=== PATIENT | female | born 1990 | race Caucasian/White ===

== ENCOUNTER 2024-05-27 00:37 | Inpatient (IN) | payer BC ==
[2024-05-27] MEDS ORDERED: KETOROLAC 30 MG/ML INJ ONE (01:53)
[2024-05-27] MEDS ORDERED: ONDANSETRON 4 MG/2 ML VIAL ONE (01:53)
[2024-05-27] MEDS ORDERED: NA CHLORIDE 0.9% 1,000 ML ONE ×2 (01:53→06:27)
[2024-05-27] MEDS ORDERED: MORPHINE 4 MG/ML SYR ONE (01:53)
[2024-05-27 01:58] LABS: Specific Gravity 1.015 (1.005-1.030); Sqamous Epithelial <5 /HPF (None Seen); Urine Bacteria <20 /HPF (<20); Urine Bilirubin NEGATIVE (Negative); Urine Blood 3+ (OVER) (Negative); Urine Clarity Extremely Turbid (Clear); Urine Color Yellow (Yellow); Urine Culture Reflex Order REFLEXED; Urine Glucose NEGATIVE (Negative); Urine Ketones 2+ (Negative); Urine Microscopic Reflex YN ORDER UMIC; Urine Mucus 4+ /HPF (None Seen); Urine Nitrite NEGATIVE (Negative); Urine Protein 2+ (Negative); Urine RBC >50 /HPF (None Seen); Urine Urobilinogen Normal (Normal); Urine WBC >50 /HPF (<5); Urine WBC Clump Occasional /HPF (None Seen); Urine pH 6.5 (5.0-7.0)
[2024-05-27 01:59] LABS: Specific Gravity 1.015 (1.005-1.030)
[2024-05-27 02:16] LABS: Absolute Eosinophils 0.1 K/uL (0-0.5); Absolute Lymphocytes (CBC) 1.5 K/uL (0.7-4.9); Absolute Monocytes 0.8 K/uL (0.1-1.3); Absolute Neutrophil 14.3 K/uL (1.8-8.0); Basophils % 0.2 % (0-1.3); Eosinophils % 0.3 % (0-4.4); Hematocrit 38.3 % (36.0-45.0); Hemoglobin 12.5 g/dL (12.0-15.0); Lymphocytes % 9.2 % (15.3-44.8); MCH 29.3 pg (27.0-35.0); MCHC 32.7 g/dL (32.0-36.0); MCV 89.6 fL (80-100); Monocytes % 4.9 % (3.3-12.3); Neutrophils % 85.4 % (41.7-73.7); Platelets 289 thou/uL (152-406); RBC Red Blood Cell Count 4.27 M/uL (3.86-4.86); Red Cell Distribution Width 13.8 % (12.1-15.2)
[2024-05-27 02:26] LABS: ALT/SGPT 17 U/L (13-56); Albumin/Globulin Ratio 1.2 (1.1-1.8); Alkaline Phosphatase 63 U/L (45-117); Anion Gap 7.8 mEq/L (5.0-15.0); BUN Blood Urea Nitrogen 12 mg/dL (7-18); Bicarbonate 25 mEq/L (21-32); Bilirubin Total 0.5 mg/dL (0.2-1.0); Globulin 3.4 g/dL (2.3-3.5); Glomerular Filtration Rate 94 ml/min (=/>90); Glucose Level 108 mg/dL (74-106); Lipase 46 U/L (13-75); Potassium 3.8 mEq/L (3.5-5.1); Protein, Total 7.4 g/dL (6.4-8.2); Sodium Level 137 mEq/L (136-145)
[2024-05-27 02:34] LABS: AST/SGOT < 10 U/L (15-37)
[2024-05-27 03:21] LABS: Band Neutrophils 5 % (0-1); Differential Total Cells Count 100; Lymphocytes 10 % (15-42); Monocytes 2 % (0-10); Segmented Neutrophils 83 % (40-80)
[2024-05-27 03:22] LABS: Blood Morphology Comment NOT SEEN (NOT SEEN); Platelet Estimate ADEQ
--- NOTE | 2024-05-27 04:12 | ER ---
Nurse's Notes [facility] Name: Gavi Olivas Age: 34 yrs Sex: Female : 1990 Arrival Date: 05/27/2024 Time: 00:37 Bed 19 Private MD: Diagnosis: Pyelonephritis acute;Sepsis, unspecified organism Presentation: 05/27 01:31 Chief complaint: Patient states: left lower back pain that radiates to left lower vc1 abdomin, fever, chills, N/V. Cramping with urination. Coronavirus screen: Vaccine status: Patient reports receiving the 2nd dose of the covid vaccine. Client denies travel out of the [place] in the last 14 days. At this time, the client does not indicate any symptoms associated with coronavirus-19. Ebola Screen: Patient negative for fever greater than or equal to 101.5 degrees Fahrenheit, and additional compatible Ebola Virus Disease symptoms Patient denies exposure to infectious person. Patient denies travel to an Ebola-affected area in the 21 days before illness onset. No symptoms or risks identified at this time. Initial Sepsis Screen: Does the patient meet any 2 criteria? No. Patient's initial sepsis screen is negative. Does the patient have a suspected source of infection? No. Patient's initial sepsis screen is negative. Risk Assessment: Do you want to hurt yourself or someone else? Patient reports no desire to harm self or others. Onset of symptoms was May 25, 2024. 01:31 Method Of Arrival: Ambulatory vc1 01:31 Acuity: PERCY 3 vc1 Triage Assessment: 01:35 General: Appears in no apparent distress. uncomfortable, Behavior is calm, cooperative, vc1 appropriate for age. Pain: Complains of pain in left low back Pain radiates to left lower quadrant Pain currently is 10 out of 10 on a pain scale. GI: Abdomen is flat, non-distended, Reports lower abdominal pain, nausea, vomiting. : Urine is cloudy, Reports cramping, in supra pubic. 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 - Infectious Disease History:: Denies. - Social history:: Smoking status: Patient denies any tobacco usage or history of. - Family history:: not pertinent. Screenin:[facility] ED Fall Risk Assessment (Adult) History of falling in the last 3 months, vc1 including since admission No falls in past 3 months (0 pts) Confusion or Disorientation No (0 pts) Intoxicated or Sedated No (0 pts) Impaired Gait No (0 pts) Mobility Assist Device Used No (0 pt) Altered Elimination No (0 pt) Score/Fall Risk Level 0 - 2 = Low Risk Oriented to surroundings, Maintained a safe environment, Educated pt \T\ family on fall prevention, incl call for assistance when getting out of bed. Abuse screen: Denies threats or abuse. Nutritional screening: No deficits noted. Tuberculosis screening: No symptoms or risk factors identified. Assessment: 02:05 Reassessment: Patient appears in no apparent distress at this time. Patient and/or bm8 family updated on plan of care and expected duration. Pain level reassessed. Patient is alert, oriented x 3, equal unlabored respirations, skin warm/dry/pink. General: Appears in no apparent distress. uncomfortable, Behavior is calm, cooperative, appropriate for age. Pain: Complains of pain in abdomen and left lower quadrant and back and left low back Pain currently is 6 out of 10 on a pain scale. Neuro: No deficits noted. Level of Consciousness is awake, alert, obeys commands, Oriented to person, place, time, situation, Appropriate for age. Cardiovascular: Denies chest pain, Heart tones S1 S2 present Capillary refill < 3 seconds Patient's skin is warm and dry. Respiratory: Airway is patent Trachea midline Respiratory effort is even, unlabored, Respiratory pattern is regular, symmetrical, Breath sounds are clear bilaterally. GI: Bowel sounds present X 4 quads. Abdomen is tender to palpation in left lower quadrant. : Reports pain in left flank(s), lower quadrant(s). EENT: No signs and/or symptoms were reported regarding the EENT system. Derm: No signs and/or symptoms reported regarding the dermatologic system. 05:45 Reassessment: Patient appears in no apparent distress at this time. Patient and/or bm8 family updated on plan of care and expected duration. Pain level reassessed. Patient is alert, oriented x 3, equal unlabored respirations, skin warm/dry/pink. Patient states feeling better. Patient states symptoms have improved. Vital Signs: 01:31 BP 111 / 64; Pulse 92; Resp 18; Temp 98.6; Pulse Ox 99% ; Pain 10/10; vc1 01:40 Weight 75.3 kg; Height 5 ft. 3 in. ; vc1 02:07 BP 96 / 59; Pulse 96; Resp 18; Temp 98.6; Pulse Ox 96% ; Pain 6/10; bm8 03:30 BP 87 / 57; Pulse 73; Resp 18; Temp 98.6; Pulse Ox 100% ; Pain 0/10; bm8 05:45 BP 103 / 62; Pulse 79; Resp 17; Temp 98.5; Pulse Ox 100% ; Pain 4/10; bm8 01:40 Body Mass Index 29.41 (75.30 kg, 160.02 cm) vc1 01:31 Pain Scale: Adult vc1 02:07 Pain Scale: Adult bm8 03:30 Pain Scale: Adult bm8 05:45 Pain Scale: Adult bm8 Bob Coma Score: 02:05 Eye Response: spontaneous(4). Motor Response: obeys commands(6). Verbal Response: bm8 oriented(5). Total: 15. 03:30 Eye Response: spontaneous(4). Motor Response: obeys commands(6). Verbal Response: bm8 oriented(5). Total: 15. 05:45 Eye Response: spontaneous(4). Motor Response: obeys commands(6). Verbal Response: bm8 oriented(5). Total: 15. ED Course: 00:46 Patient arrived in ED. gm2 00:52 Joselito Ohara MD is Attending Physician. rt 01:33 Triage completed. vc1 01:35 Arm band placed on right wrist. vc1 01:51 Jeff Forrest, DOMENICA is Primary Nurse. bm8 02:04 Inserted saline lock: 20 gauge in right antecubital area, using aseptic technique. al5 02:05 Patient has correct armband on for positive identification. Bed in low position. Call bm8 light in reach. Side rails up X 1. Adult w/ patient. Client placed on continuous cardiac and pulse oximetry monitoring. NIBP monitoring applied. Pulse ox on. NIBP on. Door closed. Noise minimized. Warm blanket given. Pillow given. Verbal reassurance given. Head of bed elevated. 02:05 No provider procedures requiring assistance completed. Initial lab(s) drawn, by ED bm8 staff, sent to lab. Urine collected: clean catch specimen, clear. 02:50 CT Abd/Pelvis - IV Contrast Only In Process Unspecified. EDMS 04:11 Jono Schneider MD is Hospitalizing Provider. rt 04:45 Inserted saline lock: 22 gauge in left antecubital area, using aseptic technique. Blood bm8 collected. Flushed with 10 mL NS. 04:45 First set of blood cultures drawn by me. bm8 05:00 Second set of blood cultures drawn by me, EKG done, by ED staff, reviewed by Joselito Ohara MD. 05:21 Provided Education on: need for admit. bm8 05:45 Patient admitted, IV remains in place. bm8 11:40 CM met with at the bedside in the ED exam room. Patient identified by name ane and . Demographic confirmed. Patient states she lives with her in a single story home. Patient states prior to admission, she performs ADLs independently and without physical limitations. No DME, HH, home oxygen or other medical services at this time. No MPOA in place at this time, patient wishes to discuss this with her before putting one in place. Mrs. Olivas's preferred discharge plan is to return home. Patient states her Evaristo or a friend can transport her home upon discharge. CM team will continue to follow and coordinate care. Administered Medications: 02:04 Drug: NS 0.9% IV 1000 ml IV at 1 bolus Per protocol; 1000 mL bolus Route: IV; Rate: 1 bm8 bolus; Site: right antecubital; 05:20 Follow up: Response: No adverse reaction; IV Status: Completed infusion; IV Intake: bm8 1000ml 02:04 Drug: TORadol - Ketorolac IVP 15 mg IVP once Route: IVP; Site: right antecubital; bm8 05:21 Follow up: Response: No adverse reaction bm8 02:04 Drug: Ondansetron IVP 4 mg IVP once; over 2 minutes Route: IVP; Site: right antecubital;bm8 05:21 Follow up: Response: No adverse reaction bm8 02:04 Drug: morphine IVP or IV 4 mg IVP once over 4 mins Route: IVP; Infused Over: 4 mins; bm8 Site: right antecubital; 05:21 Follow up: Response: No adverse reaction bm8 04:38 Drug: fentaNYL (PF) IVP 50 mcg IVP once Route: IVP; Site: right antecubital; bm8 05:20 Follow up: Response: No adverse reaction bm8 04:39 Drug: NS 0.9% IV 1000 ml IV at 1 bolus Per protocol; 1000 mL bolus Route: IV; Rate: 1 bm8 bolus; Site: right antecubital; 05:20 Follow up: Response: No adverse reaction; IV Status: Completed infusion; IV Intake: bm8 1000ml 05:06 Drug: Rocephin IV 2 grams IV at calculated rate once; Given slow IV push per pharmarcy bm8 instructions Route: IV; Rate: calculated rate; Site: left antecubital; 05:20 Follow up: Response: No adverse reaction; IV Status: Completed infusion; IV Intake: bm8 100ml Medication: 02:05 VIS not applicable for this client. bm8 Intake: 05:20 IV: 100ml; Total: 100ml. bm8 05:20 IV: 1000ml; Total: 1100ml. bm8 05:20 IV: 1000ml; Total: 2100ml. bm8 Outcome: 04:12 Decision to Hospitalize by Provider. rt 05:45 Admitted to ER Hold. Please see [facility] for further documentation. bm8 05:45 Condition: stable 05:45 Instructed on the need for admit, Demonstrated understanding of instructions, follow-up care, 14:42 Patient left the ED. bp Signatures: Dispatcher [employer] EDMS John Vicente RN RN bp Jeannette Chung RN RN vc1 Joselito Ohara MD MD rt Cherelle Salcido gm2 Jeff Forrest RN RN bm8 Chanda Garcia RN RN al5 Mallory Tracy RN RN ane Corrections: (The following items were deleted from the chart) 01:35 01:33 PMHx: None; vc1 vc1 04:38 04:38 fentaNYL (PF) IVP 50 mcg IVP in left antecubital bm8 bm8
--- NOTE | 2024-05-27 04:13 | EDPHYS ---
Physician Documentation [facility] Name: Gavi Olivas Age: 34 yrs Sex: Female : 1990 Arrival Date: 05/27/2024 Time: 00:37 Bed 19 Private MD: ED Physician Joselito Ohara HPI: 05/27 04:22 This 34 yrs old Female presents to ER via Ambulatory with complaints of Abdominal Pain, rt Back Pain, Fever, Vomiting. 04:22 Patient presents to the ED with about 1 week of progressively worsening dysuria, rt nausea, vomiting, reported fevers, right flank pain. Denies other acute complaints at this time, symptoms are moderate in severity, no other aggravating alleviating factors.. 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 - Infectious Disease History:: Denies. - Social history:: Smoking status: Patient denies any tobacco usage or history of. - Family history:: not pertinent. ROS: 04:22 Cardiovascular: Negative for chest pain, palpitations, and edema, Respiratory: Negative rt for shortness of breath, cough, wheezing, and pleuritic chest pain, MS/Extremity: Negative for injury and deformity, Skin: Negative for injury, rash, and discoloration, Neuro: Negative for headache, weakness, numbness, tingling, and seizure, 04:22 Constitutional: Positive for fever, 04:22 Abdomen/GI: Positive for abdominal pain, nausea and vomiting, 04:22 : Positive for flank pain, burning with urination, Exam: 04:24 Constitutional: This is a well developed, well nourished patient who is awake, alert, rt and in no acute distress. Head/Face: Normocephalic, atraumatic. Chest/axilla: Normal chest wall appearance and motion. Nontender with no deformity. No lesions are appreciated. Cardiovascular: Regular rate and rhythm with a normal S1 and S2. No gallops, murmurs, or rubs. Normal PMI, no JVD. No pulse deficits. Respiratory: Lungs have equal breath sounds bilaterally, clear to auscultation and percussion. No rales, rhonchi or wheezes noted. No increased work of breathing, no retractions or nasal flaring. Abdomen/GI: Soft, non-tender, with normal bowel sounds. No distension or tympany. No guarding or rebound. No evidence of tenderness throughout. Skin: Warm, dry with normal turgor. Normal color with no rashes, no lesions, and no evidence of cellulitis. MS/ Extremity: Pulses equal, no cyanosis. Neurovascular intact. Full, normal range of motion. Neuro: Awake and alert, GCS 15, oriented to person, place, time, and situation. Cranial nerves II-XII grossly intact. Motor strength 5/5 in all extremities. Sensory grossly intact. Cerebellar exam normal. Normal gait. 04:24 ECG was reviewed by the Attending Physician. 04:24 Back: Right CVAT, Vital Signs: 01:31 BP 111 / 64; Pulse 92; Resp 18; Temp 98.6; Pulse Ox 99% ; Pain 10/10; vc1 01:40 Weight 75.3 kg; Height 5 ft. 3 in. ; vc1 02:07 BP 96 / 59; Pulse 96; Resp 18; Temp 98.6; Pulse Ox 96% ; Pain 6/10; bm8 03:30 BP 87 / 57; Pulse 73; Resp 18; Temp 98.6; Pulse Ox 100% ; Pain 0/10; bm8 05:45 BP 103 / 62; Pulse 79; Resp 17; Temp 98.5; Pulse Ox 100% ; Pain 4/10; bm8 01:40 Body Mass Index 29.41 (75.30 kg, 160.02 cm) vc1 01:31 Pain Scale: Adult vc1 02:07 Pain Scale: Adult bm8 03:30 Pain Scale: Adult bm8 05:45 Pain Scale: Adult bm8 Bob Coma Score: 02:05 Eye Response: spontaneous(4). Motor Response: obeys commands(6). Verbal Response: bm8 oriented(5). Total: 15. 03:30 Eye Response: spontaneous(4). Motor Response: obeys commands(6). Verbal Response: bm8 oriented(5). Total: 15. 05:45 Eye Response: spontaneous(4). Motor Response: obeys commands(6). Verbal Response: bm8 oriented(5). Total: 15. MDM: 01:37 Patient medically screened. rt 04:24 Differential diagnosis: UTI, kidney stone, bilateral. Data reviewed: vital signs, rt nurses notes, lab test result(s), EKG, radiologic studies. Consideration of Admission/Observation Patient was admitted/placed on observation. Management of patient was discussed with the following: Hospitalist: Agrees to admit. I considered the following discharge prescriptions or medication management in the emergency department Medications were administered in the Emergency Department. See MAR. Independent interpretation of the following test(s) in the Emergency Department CT Scan: My interpretation is No ureteral stone seen on interpretation of CT scan images. Counseling: I had a detailed discussion with the patient and/or guardian regarding the historical points, exam findings, and any diagnostic results supporting the discharge/admit diagnosis, lab results, radiology results, the need for further work-up and treatment in the hospital. Response to treatment: the patient's symptoms have markedly improved after treatment. ED course: Infectious source not identified until patient's urinalysis resulted. Second SIRS criteria with leukocytosis, that time, IV fluids, antibiotics were given. Patient to be admitted for further care.. 05/27 01:40 Order name: Urinalysis w/ reflexes; Complete Time: 03:47 vc1 05/27 01:42 Order name: CBC with Diff; Complete Time: 03:47 rt 05/27 01:42 Order name: CMP; Complete Time: 03:47 rt 05/27 01:42 Order name: Lipase; Complete Time: 03:47 rt 05/27 01:42 Order name: Test, Urine; Complete Time: 03:47 rt 05/27 02:02 Order name: Urine Culture EDMS 05/27 02:38 Order name: Manual Differential; Complete Time: 03:47 EDMS 05/27 03:56 Order name: Blood Culture Adult (2) rt 05/27 03:56 Order name: Lactate w/ 2H reflex if indic. rt 05/27 03:56 Order name: Protime (+inr) rt 05/27 03:56 Order name: Ptt, Activated rt 05/27 04:21 Order name: Urinalysis w/ reflexes EDMS 05/27 01:42 Order name: CT Abd/Pelvis - IV Contrast Only rt 05/27 01:42 Order name: IV Saline Lock; Complete Time: 02:05 rt 05/27 01:42 Order name: Labs collected and sent; Complete Time: 02:05 rt 05/27 03:56 Order name: Cardiac monitoring; Complete Time: 04:10 rt 05/27 03:56 Order name: EKG - Nurse/Tech; Complete Time: 04:10 rt 05/27 03:56 Order name: IV Saline Lock - Large Bore; Complete Time: 04:10 rt 05/27 03:56 Order name: O2 Per Protocol; Complete Time: 04:10 rt 05/27 03:56 Order name: O2 Sat Monitoring; Complete Time: 04:10 rt 05/27 03:56 Order name: Vital Signs; Complete Time: 04:10 rt EC:24 Rate is 76 beats/min. Rhythm is regular, Normal Sinus Rhythm with No ectopy. QRS [place] rt is Normal. VT interval is normal. QRS interval is normal. QT interval is normal. No Q waves. T waves are Normal. No ST changes noted. Interpreted by me. Administered Medications: 02:04 Drug: NS 0.9% IV 1000 ml IV at 1 bolus Per protocol; 1000 mL bolus Route: IV; Rate: 1 bm8 bolus; Site: right antecubital; 05:20 Follow up: Response: No adverse reaction; IV Status: Completed infusion; IV Intake: bm8 1000ml 02:04 Drug: TORadol - Ketorolac IVP 15 mg IVP once Route: IVP; Site: right antecubital; bm8 05:21 Follow up: Response: No adverse reaction bm8 02:04 Drug: Ondansetron IVP 4 mg IVP once; over 2 minutes Route: IVP; Site: right antecubital;bm8 05:21 Follow up: Response: No adverse reaction bm8 02:04 Drug: morphine IVP or IV 4 mg IVP once over 4 mins Route: IVP; Infused Over: 4 mins; bm8 Site: right antecubital; 05:21 Follow up: Response: No adverse reaction bm8 04:38 Drug: fentaNYL (PF) IVP 50 mcg IVP once Route: IVP; Site: right antecubital; bm8 05:20 Follow up: Response: No adverse reaction bm8 04:39 Drug: NS 0.9% IV 1000 ml IV at 1 bolus Per protocol; 1000 mL bolus Route: IV; Rate: 1 bm8 bolus; Site: right antecubital; 05:20 Follow up: Response: No adverse reaction; IV Status: Completed infusion; IV Intake: bm8 1000ml 05:06 Drug: Rocephin IV 2 grams IV at calculated rate once; Given slow IV push per pharmarcy bm8 instructions Route: IV; Rate: calculated rate; Site: left antecubital; 05:20 Follow up: Response: No adverse reaction; IV Status: Completed infusion; IV Intake: bm8 100ml Disposition Summary: 05/27/24 04:12 Hospitalization Ordered Notes: Hospitalization Status: Inpatient Admission rt Provider: Jono Schneider rt Condition: Stable rt Problem: new rt Symptoms: have improved rt Bed/Room Type: Standard rt Location: Telemetry/MedSurg (Inpatient)(05/27/24 13:58) ap3 Room Assignment: 212(05/27/24 13:58) ap3 Diagnosis - Pyelonephritis acute rt - Sepsis, unspecified organism rt Discharge Instructions: - Discharge Summary Sheet ty Forms: - Medication Reconciliation Form rt - SBAR form rt - Leadership Thank You Letter rt - Work release form ty Signatures: Dispatcher [employer] Francheska Zaldivar, RN Chanda Wadsworth RN RN ap3 Jeannette Chung RN RN vc1 Joselito Ohara MD MD rt Jeff Frorest RN RN bm8 Corrections: (The following items were deleted from the chart) 01:35 01:33 PMHx: None; vc1 vc1 01:43 01:43 Abdomen Pelvis W Con+CT.RAD.BRZ ordered. EDMS EDMS 03:57 03:57 BLOOD CULTURE*+BA.LAB.BRZ ordered. EDMS EDMS 03:57 03:57 LACTATE+C.LAB.BRZ ordered. EDMS EDMS 03:57 03:57 PROTIME (+INR)+COAG.LAB.BRZ ordered. EDMS EDMS 03:57 03:57 PTT, ACTIVATED+COAG.LAB.BRZ ordered. EDMS EDMS 04:10 03:56 Accucheck ordered. rt bm8 04:50 04:12 Telemetry/MedSurg (Inpatient) rt cg 04:50 04:12 rt cg 13:58 04:50 [facility] ER HOLD cg ap3 13:58 04:50 ERHOLD- cg ap3
[2024-05-27] MEDS ORDERED: FENTANYL CITR 100 MCG/2 ML ONE (04:22)
--- NOTE | 2024-05-27 04:22 | P.HP ---
Certification for Inpatient Patient admitted to: Inpatient With expected LOS: >2 Midnights Practitioner: I am a practitioner with admitting privileges, knowledge of patient current condition, hospital course, and medical plan of care. Services: Services provided to patient in accordance with Admission requirements found in Title 42 Section 412.3 of the Code of Federal Regulations Patient History Date of Service: 05/27/24 Reason for admission: Fevers or chills History of Present Illness: 34-year-old female with no significant past medical history came to ER with abdominal pain and fever and chills associated with dysuria for the last 2 days. Patient states that the pain initially started as lower abdominal pain and back pain which has been going on since Monday. Yesterday patient started having fever and chills and flank pain and was brought to ER Patient was assessed in the ER and was found to have pyelonephritis and was admitted for further management Allergies No Known Allergies Allergy (Unverified 05/27/24 05:14) Home medications list reviewed: Yes - Past Medical/Surgical History Past Medical History: Reviewed- Non-Contributory Past Surgical History: Reviewed- Non-Contributory - Family History Family History: Reviewed- Non-Contributory - Social History Smoking Status: Never smoker Review of Systems 10-point ROS is otherwise unremarkable Physical Examination - Vital Signs Temperature: 99.2 F Blood Pressure: 108/62 Pulse: 84 Respirations: 18 Pulse Ox (%): 96 - Physical Exam General: Alert, Oriented x3, Cooperative, Mild distress HEENT: Atraumatic, Normocephalic Neck: Supple, JVD not distended Respiratory: Clear to auscultation bilaterally, Normal air movement Cardiovascular: Normal pulses, Regular rate/rhythm Capillary refill: <2 Seconds Gastrointestinal: Non-distended, W/out hepatosplenomegaly, Tenderness Musculoskeletal: No clubbing, No swelling Integumentary: No rashes, No breakdown Neurological: Normal gait, Normal speech, Normal strength at 5/5 x4 extr, Cranial nerves 3-12 intact, Normal reflexes 2+ Lymphatics: No axilla or inguinal lymphadenopathy - Studies Laboratory Data (last 24 hrs) 05/27/24 05/27/24 01:56 01:56 WBC 16.80 H Hgb 12.5 Hct 38.3 Plt Count 289 Sodium 137 Potassium 3.8 BUN 12 Creatinine 0.83 Glucose 108 H Total Bilirubin 0.5 AST < 10 L ALT 17 Alkaline Phosphatase 63 Lipase 46 Assessment and Plan - Plan Pyelonephritis Pain control IV hydration IV antibiotic Will obtain cultures Change antibiotic as per sensitivity Monitor closely with telemetry Leukocytosis CBC monitored Continue antibiotics GI/DVT prophylaxis Advanced directive full code Discharge Plan: Home Plan to discharge in: 48 Hours - Advance Directives Does patient have a Living Will: No Does patient have a Durable POA for Healthcare: No - Code Status/Comfort Care Code Status: Full Code Time Spent Managing Pts Care (In Minutes): 48
[2024-05-27] MEDS: NA CHLORIDE 0.9% 1,000 ML IV SCH (05:00)
[2024-05-27] MEDS ORDERED: CEFTRIAXONE 2000 MG/VIAL ONE (05:05)
[2024-05-27 05:30] LABS: PTT, Activated Partial Thromb 31.6 SECONDS (24.3-36.9); Protime INR 1.07
[2024-05-27 06:20] VITALS: BMI 29.4
[2024-05-27] MEDS: HYDROCODONE/APAP 5/325 MG TAB PO PRN (07:45)
[2024-05-27] MEDS ORDERED: HYDROCODONE/APAP 5/325 MG TAB ONE (07:48)
[2024-05-27 08:29] LABS: Sqamous Epithelial <5 /HPF (None Seen); Urine Bacteria None Seen /HPF (<20); Urine Bilirubin NEGATIVE (Negative); Urine Blood 1+ (Negative); Urine Clarity Clear (Clear); Urine Color Yellow (Yellow); Urine Culture Reflex Order REFLEXED; Urine Glucose NEGATIVE (Negative); Urine Ketones 1+ (Negative); Urine Microscopic Reflex YN ORDER UMIC; Urine Nitrite 2+ (Negative); Urine Protein TRACE (Negative); Urine RBC 21-50 /HPF (None Seen); Urine Urobilinogen Normal (Normal); Urine WBC 20-50 /HPF (<5); Urine pH 7.5 (5.0-7.0)
[2024-05-27 08:42] LABS: Specific Gravity > 1.030 (1.005-1.030)
[2024-05-27] MEDS: ENOXAPARIN 40 MG/0.4 ML SQ SCH (09:00)
[2024-05-27] MEDS ORDERED: ENOXAPARIN 40 MG/0.4 ML SQ ONE (09:26)
--- NOTE | 2024-05-27 14:58 | P.PN ---
Date of Service: 05/27/24 Patient seen and examined. She is complaining of left flank pain. She has been afebrile. She stated her blood pressure is usually borderline low. Diagnosis: Acute cystitis with hematuria IV Rocephin Analgesics as needed Diet as tolerated Follow cultures.
--- NOTE | 2024-05-27 15:07 | RAD REPORT ---
EXAM DESCRIPTION: CT - Abdomen Pelvis W Contrast - 05/27/2024 5:56 am CLINICAL HISTORY: The patient is 34 years old and is Female; flank, abd pain TECHNIQUE: Axial computed tomography images of the abdomen and pelvis with intravenous contrast. S agittal and coronal reformatted images were created and reviewed. This CT exam was performed using one or more of the following dose reduction techniques: automated exposure control, adjustment of t he mA and/or kV according to patient size, and/or use of iterative reconstruction technique. COMPARISON: No relevant prior studies available. FINDINGS: Lung bases: Unremarkable. No mass. No consolidation. ABDOMEN: Liver: Unremarkable. No mass. Gallbladder and bile ducts: Unremarkable. No calcified stones. No ductal dilation. Pancreas: Unremarkable. No mass. No ductal dilation. Spleen: Unremarkable. No splenomegaly. Adrenals: Unremarkable. No mass. Kidneys and ureters: Nonobstructing calcification in the right kidney. Stomach and bowel: Unremarkable. No obstruction. No mucosal thickening. PELVIS: Appendix: No findings to suggest acute appendicitis. Bladder: Mild bladder wall thickening. Reproductive: Unremarkable as visualized. ABDOMEN and PELVIS: Intraperitoneal space: Unremarkable. No free air. No significant fluid collection. Bones/joints: No acute fracture. No dislocation. Soft tissues: Unremarkable. Vasculature: Unremarkable. No abdominal aortic aneurysm. Lymph nodes: Unremarkable. No enlarged lymph nodes. IMPRESSION: Mild bladder wall thickening. Correlate with any concern for cystitis. Electronically signed by: hZen Alberts MD 05/27/2024 03:14 AM CDT RP 8 Due to temporary technical issues with the PACS/Fluency reporting system, reports are being signed by the in house radiologist without review as a courtesy to ensure prompt reporting. The interpreting r adiologist is fully responsible for the content of the report.
[2024-05-27 15:14] VITALS: O2SAT 100
[2024-05-27] MEDS: ACETAMINOPHEN 325 MG TABLET PO PRN (16:16)
[2024-05-27] MEDS: ONDANSETRON 4 MG/2 ML VIAL IV PRN (16:17)
[2024-05-27] MEDS: KETOROLAC 30 MG/ML INJ IV PRN (20:06)
[2024-05-27] MEDS: TRAZODONE 50 MG TABLET PO SCH (20:07)
[2024-05-27] MEDS: LEVETIRACETAM 500 MG PO SCH (20:08)
[2024-05-27] MEDS: MORPHINE 2 MG/ML SYR IV PRN (22:45)
--- NOTE | 2024-05-28 07:01 | P.PN ---
Date of Service: 05/28/24 Subjective: feels slightly better L flank/back pain improved, but still having b/l pain mainly cramping pain when urinating no visible hematuria ROS: 10 point ROS as noted above, otherwise negative Physical Exam: GEN: Alert, oriented, NAD CV: Regular rate and rhythm, no edema Pulm: Nonlabored respirations on room air, clear bilaterally ABD: Soft, left flank tenderness, left CVA tenderness Neuro: Normal speech, normal affect vitals reviewed Problem List: Acute cystitis with hematuria Hypotension Acute cystitis with hematuria on admission presents with left flank pain, fever, chills, dysuria for 2 days. treat for UTI 3-4 weeks ago, and symtoms recurred more severe; received macrobid before. f/u cultures CT abdomen (05/27): mild bladder wall thickening. No other acute findings. blood cx (05/27): NGTD urine cx (05/27): 4+ GNR Continue empiric rocephin (05/28-) afebrile, leukocytosis improved (05/28) continue IV fluids pain control Hypotension Patient states her blood pressure is usually borderline low. Continue to monitor VTE: Lovenox Code: Full Dispo: Home, ~1-2 days Pending cultures Time Spent Managing Pts Care (In Minutes): 41
[2024-05-28 07:48] LABS: Absolute Eosinophils 0.1 K/uL (0-0.5); Absolute Monocytes 0.4 K/uL (0.1-1.3); Absolute Neutrophil 4.2 K/uL (1.8-8.0); Basophils % 0.4 % (0-1.3); Eosinophils % 1.4 % (0-4.4); Hematocrit 32.5 % (36.0-45.0); Hemoglobin 11.1 g/dL (12.0-15.0); Lymphocytes % 30.1 % (15.3-44.8); MCH 30.6 pg (27.0-35.0); Monocytes % 5.9 % (3.3-12.3); Neutrophils % 62.2 % (41.7-73.7); Nucleated Red Blood Cells % 0.1 % (0-0); Platelets 239 thou/uL (152-406); RBC Red Blood Cell Count 3.61 M/uL (3.86-4.86)
[2024-05-28 08:05] LABS: Anion Gap 5.9 mEq/L (5.0-15.0); Magnesium 1.9 mg/dL (1.6-2.4); Potassium 3.9 mEq/L (3.5-5.1)
[2024-05-28] MEDS: SERTRALINE HCL 100 MG TAB PO SCH (08:44)
[2024-05-28] MEDS: CEFTRIAXONE 1,000 MG in NA CHLORIDE 0.9% 50 ML IVPB SCH (08:44)
--- NOTE | 2024-05-28 12:43 | EKG ---
Test Date: 2024-05-27 Test Time: 04:17:00 Chemical Preparer: JUAREZ MEASUREMENT RESULTS: Intervals: Rate: 76 FL: 140 QRSD: 86 QT: 374 QTc: 420 [place]: P: 4 FL: 140 QRS: 74 T: 30 INTERPRETIVE STATEMENTS: Normal sinus rhythm Nonspecific ST and T wave abnormality Abnormal ECG No previous ECG available for comparison Electronically Signed On 05-28-24 12:40:26 CDT by Desean Simpson
[2024-05-28] MEDS: NA CHLORIDE 0.9% 1,000 ML IV SCH (20:54)
[2024-05-29 04:59] LABS: Hematocrit 33.1 % (36.0-45.0); Hemoglobin 11.3 g/dL (12.0-15.0); MCH 30.1 pg (27.0-35.0); MCV 88.8 fL (80-100); MPV 7.7 fL (7.6-11.3); Platelets 254 thou/uL (152-406); RBC Red Blood Cell Count 3.73 M/uL (3.86-4.86); Red Cell Distribution Width 13.6 % (12.1-15.2)
[2024-05-29 05:17] LABS: Anion Gap 5.8 mEq/L (5.0-15.0); Magnesium 1.8 mg/dL (1.6-2.4); Potassium 3.8 mEq/L (3.5-5.1)
[2024-05-29] MEDS: POTASSIUM CL SA 10 MEQ TAB PO ONE (08:18)
[2024-05-29] MEDS: CODEINE 30MG/APAP 300MG TAB PO PRN (08:19)
[2024-05-29 09:07] VITALS: BP 104/60; TEMP 98.9
--- NOTE | 2024-05-29 11:28 | P.DS ---
Admission Date: 05/27/24 Discharge Date: 05/29/24 Disposition: ROUTINE DISCHARGE Discharge Condition: GOOD Reason for Admission: Fevers or chills Brief History of Present Illness: 34yo F, no significant past medical history Patient presented to ED with abdominal pain, fever and chills associated with dysuria for the last 2 days. Patient states that the pain initially started as lower abdominal pain and back pain which has been going on since Monday. Yesterday patient started having fever and chills and flank pain and was brought to ER. Patient was assessed in the ER and was found to have pyelonephritis and was admitted for further management Hospital Course: Problem List Acute cystitis with hematuria Chronic Hypotension Physician discharge instructions: Patient presented with left flank pain, fever, chills, dysuria for 2 days, secondary to acute cystitis. She reports recently completed macrobid for UTI 3-4 weeks ago, and symptoms recurred more severe this time around. CT abdomen noted mild bladder wall thickening, otherwise negative. Patient was started on empiric rocephin and had improvement of her symptoms. Remained afebrile with consistent improvement of her pain. Urine culture grew E. coli. Blood cultures have been without growth since 05/27. Patient was feeling better, abdominal/flank pain improving, afebrile > 24 hours, leukocytosis resolved, and was deemed stable for discharge. Patient is to complete ~10 more days of oral levaquin on discharge. Medications: Levaquin x10 days tylenol #3 as needed for pain zofran as needed for nausea Follow up: PCP 3-5 days Please call to schedule / confirm appointments Physical Exam: GEN: Alert, oriented, NAD CV: Regular rate and rhythm, no edema Pulm: Nonlabored respirations on room air, clear bilaterally ABD: Soft, minimal left flank tenderness Neuro: Normal speech, normal affect Vital Signs/Physical Exam: Temp Pulse Resp BP Pulse Ox 98.9 F 74 12 104/60 98 05/29/24 08:00 05/29/24 08:00 05/29/24 08:00 05/29/24 08:00 05/29/24 08:00 Laboratory Data at Discharge: WBC 6.60 thou/uL (4.3-10.9) 05/29/24 04:30 Hgb 11.3 g/dL (12.0-15.0) L 05/29/24 04:30 Hct 33.1 % (36.0-45.0) L 05/29/24 04:30 Plt Count 254 thou/uL (152-406) 05/29/24 04:30 PT 12.0 SECONDS (9.4-12.5) 05/27/24 05:00 INR 1.07 05/27/24 05:00 APTT 31.6 SECONDS (24.3-36.9) 05/27/24 05:00 Sodium 141 mEq/L (136-145) 05/29/24 04:30 Potassium 3.8 mEq/L (3.5-5.1) 05/29/24 04:30 BUN 6 mg/dL (7-18) L 05/29/24 04:30 Creatinine 0.69 mg/dL (0.55-1.02) 05/29/24 04:30 Glucose 87 mg/dL (74-106) 05/29/24 04:30 Magnesium 1.8 mg/dL (1.6-2.4) 05/29/24 04:30 Total Bilirubin 0.5 mg/dL (0.2-1.0) 05/27/24 01:56 AST < 10 U/L (15-37) L 05/27/24 01:56 ALT 17 U/L (13-56) 05/27/24 01:56 Alkaline Phosphatase 63 U/L (45-117) 05/27/24 01:56 Lipase 46 U/L (13-75) 05/27/24 01:56 Home Medications: Levetiracetam [Keppra Xr] 500 mg PO BID 05/27/24 Sertraline [Zoloft*] 100 mg PO DAILY 05/27/24 Trazodone HCl 100 mg PO BEDTIME 05/27/24 Codeine/APAP [Tylenol #3*] 1 tab PO Q8H PRN #5 tab 05/29/24 Ondansetron [Zofran] 4 mg PO Q6H PRN #10 tab 05/29/24 levoFLOXacin [Levaquin*] 750 mg PO DAILY 10 Days #10 tab 05/29/24 New Medications: levoFLOXacin [Levaquin*] 750 mg PO DAILY 10 Days #10 tab Codeine/APAP [Tylenol #3*] 1 tab PO Q8H PRN #5 tab PRN Reason: Pain Scale 5-7 (Moderate) Ondansetron [Zofran] 4 mg PO Q6H PRN #10 tab PRN Reason: Nausea / Vomiting Physician Discharge Instructions: PROBLEM: Pyelonephritis, UTI GOAL: Clear understanding of disease process INSTRUCTIONS: Diet: as tolerated Activity: as tolerated Physician discharge instructions: Patient presented with left flank pain, fever, chills, dysuria for 2 days, secondary to acute cystitis. She reports recently completed macrobid for UTI 3-4 weeks ago, and symptoms recurred more severe this time around. CT abdomen noted mild bladder wall thickening, otherwise negative. Patient was started on empiric rocephin and had improvement of her symptoms. Remained afebrile with consistent improvement of her pain. Urine culture grew E. coli. Blood cultures have been without growth since 05/27. Patient was feeling better, abdominal/flank pain improving, afebrile > 24 hours, leukocytosis resolved, and was deemed stable for discharge. Patient is to complete ~10 more days of oral levaquin on discharge. Medications: Levaquin x10 days tylenol #3 as needed for pain zofran as needed for nausea Follow up: PCP 3-5 days Please call to schedule / confirm appointments Followup: Abelardo [email or web address] [Primary Care Provider] - Time spent managing pt's care (in minutes): 45
[2024-05-29] MEDS: levoFLOXacin 750 MG TAB PO ONE (11:55)
[2024-05-30] MEDS ORDERED: levoFLOXacin 750 MG TAB PO SCH (09:00)
== END 2024-05-29 12:40 | disposition home or self-care (01) | DRG 690 ==
LOC: ER 00:37 → ERHOLD 04:17 → 2ND 14:00
PROVIDERS: ADMIT Family Medicine; ATTEND Hospitalist
DX: N30.01 Acute cystitis with hematuria (principal); N10 Acute pyelonephritis; I95.9 Hypotension, unspecified; B96.20 Unspecified Escherichia coli [E. coli] as the cause of diseases classified elsewhere
CPT/HCPCS: 36415; 74177; 80048; 80053; 81001; 81025; 83605; 83690; 83735; 85025; 85027; 85610; 85730; 87040; 87077; 87086; 87088; 87186; 93005; 99285; J0696; J1650; J2270; J2405; J3010; J7030; Q9967

== ENCOUNTER 2024-08-27 15:05 | Inpatient (IN) | payer BC ==
--- OUTSIDE RECORDS SUMMARY | 2024-08-27 15:08 | XMS REPORT | Continuity of Care Document ---
Author Name Unknown Address [address] [facility]. [address] [place] [address] [facility] thconnect Address [address] [facility]. [address] [place] [address] Care Team Providers Care X Ray Consultant Name Role Phone Jazmyne Graves Attending Clinician UnavailJuanjose Baltazar Attending Clinician Unavailable Krystina Croft Attending Clinician UnavailJuanjose Wright Attending Clinician Unavailable Juanjose Nathan Admitting Clinician Unavailable Payers Payer Name Policy Type Policy Number Effective Date Expirati on Date Source [facility] C1 [id number] [facility] Problems Condition Name Condition Details Condition Category Status Onset Date Resolution Date Last Treatment Date Treating Clinician Comments Source [id number] Missed period Problem Active [facility] [id number] Migraine with aura and without status migrainosu s, not intractabl e Problem Active [facility] [id number] Seasonal allergies Problem Active [facility] [id number] Generalize d anxiety disorder Problem Active [facility] Menorrhagi a Menorrhagi a Problem Active [facility] [id number] Major depressive disorder, single episode, moderate Problem Active [facility] [id number] Anxiety Problem Active [facility] [id number] Other chronic pain Problem Active [facility] [id number] Morbid (severe) obesity due to excess calories Problem Active [facility] [id number] Primary insomnia Problem Active [facility] [id number] Body mass index (BMI) 40.0-44.9, adult Problem Active [facility] Allergies, Adverse Reactions, Alerts Allergy Name Allergy Type Status Severity Reaction(s) Onset Date Inactive Date Treating Clinician Comments Source No Known Allergie s DA Active U 12-19 00:00: 00 [facility] Primo Social History Social Habit Start Date Stop Date Quantity Comments Source History of Tobacco Use [facility] Sex Assigned At [facility] Smoking Status Start Date Stop Date Source Never Smoker [facility] Medications Ordered Medication Name Filled Medication Name Start Date Stop Date Current Medication? Ordering Clinician Indication Dosage Frequency Signature (SIG) Comments Components Source Paxlovid 20 x 150 MG & 10 x 100MG Paxlovid 20 x 150 MG & 10 x 100MG 04-27 00:00: 00 No BID Paxlovid 20 x 150 MG & 10 x 100MG Sertraline HCl 50 MG Sertraline HCl 50 MG 2020-10 2- 00:00: 00 No 1{table t} QD Sertraline HCl 50 MG Sertraline HCl 50 MG Sertraline HCl 50 MG 2020-10 2- 00:00: 00 No 1{table t} QD Sertraline HCl 50 MG Sertraline HCl 100 MG Sertraline HCl 100 MG 3- 00:00: 00 No 1{table t} QD Sertraline HCl 100 MG Belsomra Belsomra 9-09 00:00: 00 Yes Krystina Croft 1 tablet [facility] Phentermine HCl Phentermine HCl 04-23 00:00: 00 Yes Krystina Croft 1 capsule [facility] Singulair Singulair 04-23 00:00: 00 Yes Krystina Croft 1 tablet [facility] Ambien Ambien 04-23 00:00: 00 Yes Krystina Croft 1 tablet at bedtime [facility] Depo-Medrol (METHYLPRED nisolone) 40mg Depo-Medrol (METHYLPRED nisolone) 40mg 01-13 00:00: 00 No 40mg [facility] Dexamethaso ne Dexamethaso ne 01-13 00:00: 00 No 14mg [facility] Rocephin (Ceftriaxon e) Rocephin (Ceftriaxon e) 01-13 00:00: 00 No [facility]ics Botox Botox Yes Krystina Croft as directed [facility] Sertraline HCl Sertraline HCl Yes Krystina Croft 1 tablet [facility] unknown unknown Yes Krystina Croft not defined [facility] Probiotic Probiotic Yes Krystina Croft as directed [facility] Probiotic - Probiotic - No Pr obiotic - Singulair 10 mg Singulair 10 mg No 1{table t} QD Singulair 10 mg Sertraline HCl 100MG Sertraline HCl 100MG No 1{table t} QD Sertraline HCl 100MG unknown unknown No unknown traZODone HCl 100 mg traZODone HCl 100 mg No 1{table t_at_be dtime_a s_neede d} QD traZODone HCl 100 mg levETIRAcet am 500 MG levETIRAcet am 500 MG No 1{table t} BID levETIRAce johnson 500 MG Vital Signs Vital Name Observation Time Observation Value Comments S jaspreetce weight 2021-09-14 11:15:00 194.2 [lb_av] [facility] height 2021-09-14 11:15:00 62 [in_i] [facility] bmi 2021-09-14 11:15:00 35.52 kg/m2 [facility] heart rate 2021-09-14 11:15:00 72 /min [facility] temperature 2021-09-14 11:15:00 98.4 [degF] [facility] oximetry 2021-09-14 11:15:00 98 % [facility] blood pressure systolic 2021-09-14 11:15:00 102 mm[Hg] [facility] blood pressure diastolic 2021-09-14 11:15:00 62 mm[Hg] [facility] Encounters Start Date/Time End Date/Time Encounter Type Admission Type Attending [facility] Care Facility Care Department Encounter ID Source 2022-05-04 06:43:00 Outpatient Jazmyne GravesLSALBERT [id number] [facility] 2021-12-29 13:59:01 Outpatient Jazmyne GravesLSALBERT [id number] [facility] 2021-10-27 14:24:36 Outpatient Jazmyne Graves STLSALBERT [id number] [facility] 2021-10-27 14:24:11 Outpatient Jazmyne GravesLSALBERT [id number] [facility] 2021-10-27 14:20:40 Outpatient Juanjose NathanLSALBERT [id number] [facility] 2021-10-27 12:36:11 Outpatient Juanjose NathanLSALBERT [id number] [facility] 2021-10-27 12:15:53 Outpatient Juanjose NathanLSALBERT [id number] [facility] 2021-10-27 12:15:22 Outpatient Juanjose NathanLSJC [id number] [facility] 2021-10-27 12:14:40 Outpatient Jac Juanjose DIOR ST[facility] [id number] [facility] 2021-10-27 11:44:56 Outpatient Jac Juanjose DIOR STLS[facility] [id number] [facility] 2021-10-27 11:44:10 Outpatient JacJuanjoseLSALBERT STLSJC [id number] [facility] 2021-10-27 11:33:43 Outpatient JacJuanjoseLSALBERT STLSJC [id number] [facility] 2021-10-27 11:33:31 Outpatient JacJuanjose STLSJC [id number] 2021-10-27 11:32:52 Outpatient JacJuanjose STLSJC [id number] [facility] 2022-04-27 00:00:00 2022-04-27 00:00:00 TeleVisit - Est Pt. - Level 3 [facility] ST[facility] [id number] [facility] 2021-09-14 00:00:00 2021-09-14 00:00:00 Office Visit, Est Pt., Level [address] [facility] [id number] [facility] 2021-09-03 00:00:00 2021-09-03 00:00:00 (TEL) [facility] [id number] [facility] 2021-01-01 00:00:00 2021-01-01 00:00:00 Outpatient [facility] [id number] [facility] 2020-12-02 00:00:00 2020-12-02 00:00:00 Outpatient STLSJC ST[facility] [id number] [facility] 2020-09-23 00:00:00 2020-09-23 00:00:00 Outpatient [facility] [id number] [facility] 2020-09-23 00:00:00 2020-09-23 00:00:00 Outpatient [facility] [id number] [facility] 2020-09-18 00:00:00 2020-09-18 00:00:00 Outpatient [facility] [id number] [facility] 2020-08-04 00:00:00 2020-08-04 00:00:00 Outpatient [facility] [id number] [facility] 2020-08-04 00:00:00 2020-08-04 00:00:00 Outpatient [facility] [id number] [facility] 2020-08-04 00:00:00 2020-08-04 00:00:00 Outpatient [facility] [id number] [facility] 2020-08-04 00:00:00 2020-08-04 00:00:00 Outpatient [facility] [id number] [facility] 2020-07-30 00:00:00 2020-07-30 00:00:00 Outpatient [facility] [id number] [facility] 2020-07-01 00:00:00 2020-07-01 00:00:00 Outpatient [facility] [id number] [facility] 2020-06-30 00:00:00 2020-06-30 00:00:00 Outpatient [facility] [id number] [facility] 2020-06-30 00:00:00 2020-06-30 00:00:00 Outpatient [facility] [id number] [facility] 2020-06-30 00:00:00 2020-06-30 00:00:00 Outpatient [facility] [id number] [facility] 2020-06-29 00:00:00 2020-06-29 00:00:00 Outpatient [facility] [id number] [facility] 2020-06-22 00:00:00 2020-06-22 00:00:00 Outpatient [facility] [id number] [facility] 2020-06-22 00:00:00 2020-06-22 00:00:00 Outpatient [facility] [id number] [facility] 2020-06-10 08:50:00 2020-06-10 08:50:00 Outpatient [facility] kol[facility] [id number] [facility] 2020-06-09 14:46:00 2020-06-09 14:46:00 Outpatient [facility] [id number] [facility] 2020-06-04 09:55:00 2020-06-04 09:55:00 Outpatient [facility] [id number] [facility] 2020-06-03 16:37:00 2020-06-03 16:37:00 Outpatient [facility] [id number] [facility] 2020-06-03 00:00:00 2020-06-03 00:00:00 Outpatient [facility] [id number] [facility] 2020-05-26 16:00:00 2020-05-26 16:00:00 Outpatient [facility] [id number] [facility] 2020-05-18 16:41:00 2020-05-18 16:41:[address] [facility] kolby [id number] [facility] 2020-05-08 09:30:00 2020-05-08 09:30:00 Outpatient Lang Krystina [facility] [id number] [facility] 2020-05-07 11:28:00 2020-05-07 11:28:00 [facility] [id number] 2020-04-28 16:10:00 2020-04-28 16:10:[address] [facility] [id number] [facility] 2020-04-24 08:24:00 2020-04-24 08:24:00 Outpatient [facility] Referral [facility] Referral [place] [id number] [facility] 2020-04-23 14:20:00 2020-04-23 14:20:00 [facility] [id number] [facility] Results Test Description Test Time Test Comments Results Result Co mments Source Type [id number] 07:29:00* Test Item Value Reference Range Interpretation Comme [facility] Blood Type Rh (test code = BT) AP Antibody Screen (test code = ABSC) NEGATIVE Received Blood Or Been w/in Past 90Days? [facility] - Specials 2017-07-13 01:39:00* Test Item Value Reference Range Interpretation Comme [facility] Chemistry - Specials (test code = THBSAG) Non-Reactive S/CO NonReactive [id number] 01:36:00* Test Item Value Reference Range Interpretation Comme [facility] Immunology (test code = SYPHABT) Non-Reactive NonReactive [id number] 00:59:00* Test Item Value Reference Range Interpretation Comme [facility] Hematology (test code = WBCT) 13.1 thou/uL 4.8-10.8 H Hematology (test code = RBCT) 3.90 mill/uL 4.20-5.40 L Hematology (test code = HGBT) 11.1 g/dL 12.0-16.0 L Hematology (test code = HCTT) 33.1 % 36.0-47.0 L Hematology (test code = MCV) 84.8 fl 81.0-99.0 N Hematology (test code = MCH) 28.5 pg 27.0-31.0 N Hematology (test code = MCHC) 33.6 g/dL 32.0-36.0 N Hematology (test code = RDW) 14.2 % 11.5-14.5 N Hematology (test code = PLTT) 303 thou/uL 130-400 N Hematology (test code = MPV) 8.5 fL 7.4-10.4 N MRI [facility] Name: DENNISE CLARKE [address] [place] [address] Phys: Krystina Croft PA-C [place] [address] : 1990 Age: 30 SEX:F [phone] Exam Date: 05/08/20 Status: REG CLI Acct: [id number] Loc: TBSIIMAG Pt Unit #: [id number] Report #: [id number] CC: Krystina Croft PA-C MRI REPORT Order # Category/Exam [id number] MRI/MRI Lumbar Spine WO Con ([id number]): . Results MRI LUMBAR SPINE WITHOUT CONTRAST: Date: 05/08/2020 HISTORY: 30-year-old female with low back pain. Other chronic pain. FINDINGS: The vertebral body heights and marrow signal are maintained. There is mild disc desiccation at L5-S1 level. Conus medullaris ends at L1 level. There is facet hypertrophy change at L5-S1 level. There are prominent anterior epidural veins without thecal sac or nerve root compression at L5-S1 level. No significant central canal stenosis or neural foraminal stenosis is seen. The paraspinal musculature is normal. IMPRESSION: Mild lumbar spondylosis at L5-S1 level. POS: [facility] Reported By: Kt Marie MD Electronically Signed Date/Time: 05/08/20 1131 Technologist: [email or web address] Dictated Date/Time: 05/08/20 1034 Transcribed Date/Time: 05/08/20 1104 Notes Date/Time Note Provider Source 2017-07-17 12:39:00 [facility] Name: DENNISE SIMMS [facility] : 1990, Age: 27, Sex: F [place] [address] Unit #: [id number], Status: DIS IN [phone] Location: 3SE 315-P Report Dict Dr.: Juanjose Nathan Jr, MD Admission Date: 07/12/17 Report #: [id number] Discharge Date: 07/17/17 CC: Juanjose Nathan Jr, MD DISCHARGE SUMMARY REPORT DISCHARGE DIAGNOSES: 1. Term . 2. Failure to progress. 3. Occiput transverse. PROCEDURE: Primary low transverse section. BRIEF HISTORY: This is a 27-year-old white female, who was admitted for post date induction. Also felt to have macrosomia. Her course was uncomplicated. The ultrasound prior to delivery revealed an 8 pound 4 ounce fetus. HOSPITAL COURSE: The patient was started on Cytotec/Pitocin induction. She progressed to approximately 4-5 cm and did not dilate any further. She was then in agreement to proceed with a primary low transverse section which went without complication. Mother and baby did very well. She is now ready for discharge. She will follow up in the office in 1 week and the baby will follow up in 1 day. Discharge H T H is 8.3 and 25.0. She will continue her vitamins and iron daily as well as her pain meds as needed. Reported By: Juanjose Nathan Jr, MD Electronically Signed Date/Time: 07/18/17 0826 Dictated Date/Time: 07/17/17 0810 Transcribed Date/Time: 07/17/17 1238 Skylights Assembler: [facility]ose Putnam [facility] 2017-07-16 10:34:00 [facility] Name: DENNISE SIMMS [employer] : 1990, Age: 27, Sex: [place] [address] Unit #: [id number], Status: ADM IN [phone] [id number] Location: 3S 315-P Report Dict DrCrystal: STELLA STODDARD MD Admission Date: 07/12/17 Report #: [id number] Discharge Date: CC: Juanjose Nathan Jr, MD, GEORGE MICHAEL MD PROGRESS NOTE DATE OF SERVICE: 07/16/2017 OB PROGRESS NOTE PRIMARY OB: Juanjose Nathan M.D. SUBJECTIVE: The patient is postop day 2 status post a primary for failure to progress. The patient reports today her main concern has been her level of pain. She reports decreased lochia , ambulating and tolerating p.o., voiding on her own. PHYSICAL EXAMINATION: VITAL SIGNS: Today, blood pressure 108/57, temperature 98.3, pulse of 82, respiratory rate of 18, satting 98% on room air. GENERAL: She appears to be in no acute distress. She is alert and oriented, cooperative and pleasant to interact with. HEAD: Normocephalic, atraumatic. ABDOMEN: Soft. Fundus is difficult to assess due to her habitus. Incision is clean, dry, and intact with nolan. No induration or erythema. EXTREMITIES: Nontender and symmetrical. ASSESSMENT AND PLAN: The patient is postop day 2 status post primary section for failure to progress at term. I made some adjustments to her pain medications, adding an order for 2 tablets of hydrocodone every 4 hours as needed for pain in addition to her ibuprofen and can reevaluate later in the day. I have given the patient instructions to notify us if her medication is not working sufficient and make sure she is taking it on a regular scheduled basis. Anticipated discharge tomorrow or on Monday when Dr. Juanjose Nathan will be back in service. Reported By: STELLA STODDARD MD Electronically Signed Date/Time: 07/17/17 0706 Dictated Date/Time: 07/16/17 1012 Transcribed Date/Time: 07/16/17 1033 Skylights Assembler: VD STELLA STODDARD [facility] 2017-07-15 14:09:00 [facility] Name: DENNISE SIMMS [facility] [employer] [facility] : 1990, Age: 27, Sex: [place] [address] Unit #: [id number], Status: ADM IN [phone] Location: [address] [place] [address] Report Dict DrCrystal: STELLA STODDARD MD Admission Date: 07/12/17 Report #: [id number] Discharge Date: CC: Juanjose Nathan Jr, MD, GEORGE MICHAEL MD PROGRESS NOTE DATE OF SERVICE: 07/15/2017 PRIMARY OB: Dr. Juanjose Nathan. SUBJECTIVE: The patient is postop day 1, status post a primary at term for failure to progress. Patient reports that she is tolerating p.o., is ambulating, has good pain control. She had a catheter pulled about 8:00 this morning, is still waiting to void. PHYSICAL EXAMINATION: VITAL SIGNS: Blood pressure 86/52 at rest, temperature 98.1, pulse of 82, respiratory rate 18, O2 saturation 98%. Patient had previous blood pressure 107/72. GENERAL: She appears to be in no acute distress. She is alert and oriented, and cooperative and pleasant to interact with. HEENT: Normocephalic, atraumatic. ABDOMEN: Soft and appropriately tender. Incision is clean, dry, and intact. There is no induration and erythema, and nolan are in place. EXTREMITIES: Has minimal edema. LABORATORY STUDIES: Postoperative hemoglobin is 8.3, hematocrit 25.0, platelets of 228,000 down from 11.1 and 33.1 and platelets of 303,000. ASSESSMENT AND PLAN: The patient is postop day 1, status post a primary , waiting to void. We will evaluate in couple of hours to confirm spontaneous void. Goals today are to maintain good pain control. Encourage ambulation and advance diet. Anticipate discharge in 2-3 days. Reported By: STELLA STODDARD MD Electronically Signed Date/Time: 07/17/17 0706 Dictated Date/Time: 07/15/17 1117 Transcribed Date/Time: 07/15/17 1408 Skylights Assembler: AVA. STELLA STODDARD [facility] 2017-07-14 10:59:00 [facility] Name: DENNISE SIMMS [address] [place] [address] : 1990, Age: 27, Sex: [place] [address] Unit #: [id number], Status: ADM IN [phone] Location: [address] [place] [address] Report Dict DrCrystal: Juanjose Nathan Jr, MD Admission Date: 07/12/17 Report #: [id number] Discharge Date: CC: Juanjose Nathan Jr, MD OPERATIVE NOTE DATE OF PROCEDURE: 07/14/2017 PREOPERATIVE DIAGNOSES: 1. Postdates. 2. Failure to progress. POSTOPERATIVE DIAGNOSES: 1. Postdates. 2. Failure to progress. 3. CPD plus occiput transverse. PROCEDURE: Primary low transverse section. SURGEON: Juanjose Nathan M.D. FLAT SORTER PROCESSOR: Margarito Valdez M.D., Crystal Wang M.D. ANESTHESIA: Epidural. PROCEDURE: This 27-year-old white female was taken to the operating room. She was placed in the supine position. The abdomen prepped and draped sterilely. A Pfannenstiel incision was made. Subcutaneous was dissected down to fascia. Fascia was opened without incident. Peritoneum was opened by blunt dissection. An Leo O ring was placed. Low transverse uterine incision was made. Fluid was noted to be clear. Delivered the baby from an OT position. Baby did breathe and cry vigorously upon delivery. Delivered placenta manually intact. Repaired the uterus with 1 Monocryl. Evacuated the abdomen of all clots. Closed the peritoneum with 2-0 chromic, the fascia with 0 Vicryl and the subq with 2-0 chromic. The skin was closed with nolan. Estimated blood loss was 700 mL Mother and baby did well. Reported By: Juanjose Nathan Jr, MD Electronically Signed Date/Time: 07/17/17 0805 Dictated Date/Time: 07/14/17 0821 Transcribed Date/Time: 07/14/17 1059 Skylights Assembler: Juanjose Putnam LSJH 2017-07-14 08:43:00 [facility] Name: DENNISE SIMMS [facility] : 1990, Age: 27, Sex: SANTOSH [place]le[place] [id number] Unit #: [id number], Status: ADM IN [phone] Location: [address] [place] [address] Report Dict DrCrystal: MARGARITO VALDEZ MD Admission Date: 07/12/17 Report #: [id number] Discharge Date: CC: MARGARITO VALDEZ MD, David R Jr MD PROGRESS NOTE DATE OF SERVICE: 07/14/2017 TIME OF DELIVERY: Roughly 08:00. FLAT SORTER PROCESSOR NOTE In brief, I was asked by Dr. Juanjose Nathan to assist in a primary in Labor and Delivery. I arrived to find the patient already prepped and draped, and I assisted Dr. Nathan up until closure of the hysterotomy. I assisted with the primary low transverse section performed under Pfannenstiel skin incision. It is important to note that a portion of the scalp electrode wire was still connected to the child scalp, and as we brought that through the hysterotomy, a decision was made to add 500 mg of Zithromax in addition to the Ancef for antimicrobial prophylaxis. After the hysterotomy closure, my partner, Dr. Crystal Wang, arrived to relieve me and she took over from there. There were no complications with my portion of the procedure, and for full details of the entire surgery, please turn to the dictation by Dr. Juanjose Nathan. It is important to note that, while I was still scrubbed in, I did administer 0.2 mg of Methergine into the uterine fundus by direct myometrial injection for brief uterine atony. However , this was done prophylactically, as there was no evidence of donita hemorrhage by volume. Once again, I assisted with a primary low transverse section with Dr. Nathan up until hysterotomy closure, at which time Dr. Wang was my surgical relief. Reported By: MARGARITO VALDEZ MD Electronically Signed Date/Time: 07/14/17 1220 Dictated Date/Time: 07/14/17 0814 Transcribed Date/Time: 07/14/1743 Skylights Assembler: MARGARITO [facility] 2017-07-12 22:01:00 [facility] Name: DENNISE SIMMS [address] : 1990, Age: 27, Sex: SANTOSH [place] [id number] Unit #: [id number], Status: ADM IN [phone] Location: [address] [place] [address] Juanjose Nathan Jr, MD Admission Date: 07/12/17 Report #: [id number] Discharge Date: CC: Juanjose Nathan Jr, MD HISTORY AND PHYSICAL REPORT HISTORY OF PRESENT ILLNESS: This is a 27-year-old white female, G1, P0 at 40 weeks and 3/ day, who is being admitted for postdate induction with possible macrosomia. Patient's course has been uncomplicated. She did have a recent ultrasound, which revealed 8-pound plus fetus. No complaints of contractions, rupture of membranes. In the office, her cervix was noted to be dilated to 0 cm, 50% and high. PAST MEDICAL HISTORY: History of ovarian cyst and migraines. ALLERGIES: BANANAS. PAST SURGICAL HISTORY: Include appendectomy, tonsillectomy, ovarian cyst. FAMILY HISTORY: Patient is adopted, family history unknown. SOCIAL HISTORY: She is a nonsmoker, does not drink. 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 She is . No kids. REVIEW OF SYSTEMS: As above. PHYSICAL EXAMINATION: VITAL SIGNS: Blood pressure 110/74, pulse 72, respirations 14, afebrile. GENERAL: No acute distress. HEART: Regular rate and rhythm. LUNGS: Clear. ABDOMEN: Soft, gravid, obese. EXTREMITIES: With no edema. LABORATORY AND X-RAY FINDINGS: GBS negative. Hematocrit 34.5. One-hour GCT 98. GC, chlamydia, and HIGHWAY PAINTER-3 negative. Hepatitis B negative, HIV negative, RPR negative, rubella immune. Thyroid normal. A positive blood type. See ultrasound done recently. Anterior placenta. ASSESSMENT: 1. A 40-week and 3/7th-day intrauterine , rule out macrosomia. 2. Morbid obesity. PLAN: 1. Routine L T D orders. 2. Cytotec/Pitocin induction. 3. Patient is anxious for this delivery. She is well aware that she may have macrosomia. 4. Anesthesia preop. Reported By: Juanjose Nathan Jr, MD Electronically Signed Date/Time: 07/17/17 0805 Dictated Date/Time: 07/12/17 184 Transcribed Date/Time: 07/12/172199 Skylights Assembler: AVA.Juanjose Hill [facility]
[2024-08-27] MEDS ORDERED: ACETAMINOPHEN 500 MG TAB ONE (15:37)
[2024-08-27] MEDS ORDERED: NA CHLORIDE 0.9% 100 ML ONE ×2 (15:37→18:15)
[2024-08-27] MEDS ORDERED: NA CHLORIDE 0.9% 2,000 ML ONE (15:37)
[2024-08-27 15:56] LABS: Absolute Eosinophils 0.1 K/uL (0-0.5); Absolute Lymphocytes (CBC) 1.9 K/uL (0.7-4.9); Absolute Monocytes 0.3 K/uL (0.1-1.3); Basophils % 0.6 % (0-1.3); Eosinophils % 0.9 % (0-4.4); Hematocrit 37.8 % (36.0-45.0); Hemoglobin 12.8 g/dL (12.0-15.0); MCH 30.1 pg (27.0-35.0); MCHC 33.9 g/dL (32.0-36.0); MCV 88.8 fL (80-100); MPV 7.7 fL (7.6-11.3); Monocytes % 5.1 % (3.3-12.3); Neutrophils % 63.4 % (41.7-73.7); Platelets 291 thou/uL (152-406); RBC Red Blood Cell Count 4.26 M/uL (3.86-4.86); Red Cell Distribution Width 13.8 % (12.1-15.2)
[2024-08-27 16:06] LABS: PT Prothrombin Time 11.5 SECONDS (9.4-12.5); PTT, Activated Partial Thromb 32.9 SECONDS (24.3-36.9); Protime INR 1.03
[2024-08-27 16:19] LABS: Albumin 3.9 g/dL (3.4-5.0); Albumin/Globulin Ratio 1.1 (1.1-1.8); Anion Gap 6.7 mEq/L (5.0-15.0); Bilirubin Total 0.8 mg/dL (0.2-1.0); Globulin 3.4 g/dL (2.3-3.5); Potassium 3.7 mEq/L (3.5-5.1); Protein, Total 7.3 g/dL (6.4-8.2)
[2024-08-27 16:26] LABS: Specific Gravity 1.014 (1.005-1.030)
[2024-08-27 16:27] LABS: Specific Gravity 1.014 (1.005-1.030); Urine Bacteria <20 /HPF (<20); Urine Bilirubin NEGATIVE (Negative); Urine Blood Negative (Negative); Urine Clarity Turbid (Clear); Urine Color Light-Yellow (Yellow); Urine Culture Reflex Order NOT NEEDED; Urine Glucose NEGATIVE (Negative); Urine Ketones NEGATIVE (Negative); Urine Microscopic Reflex YN ORDER UMIC; Urine Mucus Slight /HPF (None Seen); Urine Nitrite NEGATIVE (Negative); Urine Protein NEGATIVE (Negative); Urine RBC <5 /HPF (None Seen); Urine Urobilinogen Normal (Normal); Urine WBC <5 /HPF (<5)
--- NOTE | 2024-08-27 17:27 | RAD REPORT ---
EXAMINATION: CT ABDOMEN AND PELVIS WITH CONTRAST CLINICAL INDICATION: Abdominal pain TECHNIQUE: CT abdomen and pelvis was performed, after the administration of 100 cc Isovue-300.. Sagit meme and coronal reconstructions were obtained. One or more of the following dose reduction techniques were used: Automated exposure control, adjustment of the mA and kV according to patient si ze, and iterative reconstruction. Unless otherwise specified, incidental findings do not require dedicated imaging follow-up. [id number]. Oral contrast was not given which limits evaluation of bowel and appendix. COMPARISON: .May 2024 FINDINGS: Liver, spleen, pancreas, adrenals and left kidney appear unremarkable 2 mm calculus right kidney. No hydronephrosis. No evidence of diverticulitis. The appendix not visualized. No adnexal mass : IMPRESSION: 2 mm nonobstructing right renal calculus
--- NOTE | 2024-08-27 17:58 | ER ---
Nurse's Notes [facility] Name: Gavi Olivas Age: 34 yrs Sex: Female : 1990 Arrival Date: 08/27/2024 Time: 15:05 Bed 5 Private MD: Diagnosis: UTI/ Urinary tract infection, site not specified;Hypotension, unspecified;Severe sepsis with septic shock Presentation: 08/27 15:22 Chief complaint: Patient states: was seen at PCP and diagnosed with UTI and cm10 started on Cipro. Pt states Monday they called her and told her that her urine culture came back positive for E.Coli and was started on Fosfomycin. Pt states that she followed up with PCP today and was told to come to the ED for low BP. Pt reports having lower abdominal cramping and flank pain. Coronavirus screen: Client denies travel out of the [place] in the last 14 days. Ebola Screen: Patient denies travel to an Ebola-affected area in the 21 days before illness onset. No symptoms or risks identified at this time. Initial Sepsis Screen: Does the patient meet any 2 criteria? No. Patient's initial sepsis screen is negative. Does the patient have a suspected source of infection? No. Patient's initial sepsis screen is negative. Risk Assessment: Do you want to hurt yourself or someone else? Patient reports no desire to harm self or others. Onset of symptoms was August 27, 2024. 15:22 Method Of Arrival: Ambulatory cm10 15:22 Acuity: PERCY 3 cm10 Triage Assessment: 15:25 General: Appears in no apparent distress. uncomfortable, Behavior is calm, cooperative. cm10 Neuro: No deficits noted. Level of Consciousness is awake, alert, obeys commands, Oriented to person, place, time, situation, Appropriate for age. 16:04 Pain:. ap3 Historical: - Allergies: 20:16 Hydrocodone-Acetaminophen; br2 - Home Meds: 20:17 Keppra 250 mg Oral tablet 2 times per day for CHRONIC MIGRAINS [Active]; br2 - PMHx: 15:25 None; cm10 - PSHx: 15:25 Appendectomy; back surgery; section; Myringotomy and insertion of tympanic cm10 ventilation tube; Radio frequency ablation to back and neck; Tonsillectomy; - Immunization history:: Adult Immunizations up to date. - Infectious Disease History:: Denies. - Social history:: Smoking status: unknown. - Family history:: not pertinent. - Hospitalizations: : No recent hospitalization is reported. Screenin:30 [facility] ED Fall Risk Assessment (Adult) History of falling in the last 3 months, ap3 including since admission No falls in past 3 months (0 pts) Confusion or Disorientation No (0 pts) Intoxicated or Sedated No (0 pts) Impaired Gait No (0 pts) Mobility Assist Device Used No (0 pt) Altered Elimination No (0 pt) Score/Fall Risk Level 0 - 2 = Low Risk Oriented to surroundings, Maintained a safe environment, Educated pt \T\ family on fall prevention, incl call for assistance when getting out of bed, Assessed \T\ reinforced patient's understanding of fall precautions, Hourly rounding (assess needs \T\ fall precautionary measures) done, Used ambulatory aids as needed (educated on \T\ assisted with), Used gait belt as appropriate. Abuse screen: Denies threats or abuse. Nutritional screening: No deficits noted. Tuberculosis screening: No symptoms or risk factors identified. Assessment: 16:04 General: Appears in no apparent distress. Behavior is calm, cooperative, appropriate ap3 for age. Pain: Complains of pain in abdomen and right mid back and left mid back Pain began gradually. Neuro: Level of Consciousness is awake, alert, obeys commands, Oriented to person, place, time, situation, Appropriate for age. Cardiovascular: Patient's skin is warm and dry. Respiratory: Airway is patent Respiratory effort is even, unlabored, Respiratory pattern is regular, symmetrical. GI: Abdomen is flat. : Reports pain in right in left in lower back. 16:29 Reassessment: Patient and/or family updated on plan of care and expected duration. Pain ap3 level reassessed. Patient is alert, oriented x 3, equal unlabored respirations, skin warm/dry/pink. General: Appears in no apparent distress. Behavior is calm, cooperative, appropriate for age. 17:46 Reassessment: Patient and/or family updated on plan of care and expected duration. Pain ap3 level reassessed. Patient is alert, oriented x 3, equal unlabored respirations, skin warm/dry/pink. General: Appears in no apparent distress. Behavior is calm, cooperative, appropriate for age. Neuro: Level of Consciousness is awake, alert, obeys commands, Oriented to person, place, time, situation, Appropriate for age. 18:48 Reassessment: Sepsis Reassessment Completed. ap3 18:48 GI: Bowel sounds present X 4 quads. Abd is soft Abd is non tender. ap3 18:48 Reassessment: Patient and/or family updated on plan of care and expected duration. Pain ap3 level reassessed. Patient is alert, oriented x 3, equal unlabored respirations, skin warm/dry/pink. General: Appears in no apparent distress. Behavior is calm, cooperative, appropriate for age. Neuro: Level of Consciousness is awake, alert, obeys commands, Oriented to person, place, time, situation, Appropriate for age. Cardiovascular: Patient's skin is warm and dry. Respiratory: Airway is patent Respiratory effort is even, unlabored, Respiratory pattern is regular, symmetrical. 19:35 Reassessment: Patient and/or family updated on plan of care and expected duration. Pain br2 level reassessed. Patient is alert, oriented x 3, equal unlabored respirations, skin warm/dry/pink. Patient states feeling better. Patient states symptoms have improved. Vital Signs: 15:22 BP 101 / 68; Pulse 75; Resp 16; Temp 99.4(O); Pulse Ox 100% ; Weight 70.31 kg; Height 5 cm10 ft. 3 in. ; Pain 5/10; 16:03 BP 96 / 68; Pulse 67; Resp 17; Pulse Ox 100% on R/A; ap3 16:24 BP 86 / 76 LA Supine (auto/reg); Pulse 69 MON; Resp 17 S; Pulse Ox 100% on R/A; ap3 16:46 BP 94 / 60; Pulse 74; Resp 17; Pulse Ox 97% on R/A; ap3 17:21 BP 93 / 66; Pulse 66; Pulse Ox 100% on R/A; ap3 17:45 BP 89 / 61; Pulse 68; Resp 18; Pulse Ox 100% on R/A; ap3 18:12 BP 90 / 61; Pulse 65; Resp 18; Pulse Ox 100% on R/A; ap3 18:29 BP 99 / 74; Pulse 68; Resp 17; Pulse Ox 100% ; ap3 18:46 BP 101 / 71; Pulse 63; Resp 18; Temp 98.9; Pulse Ox 100% ; ap3 20:18 BP 101 / 64; Pulse 83; Resp 18 S; Pulse Ox 100% on R/A; Pain 5/10; br2 15:22 Body Mass Index 27.46 (70.31 kg, 160.02 cm) cm10 16:24 Sinus Rhythm ap3 15:22 Pain Scale: Adult cm10 20:18 Pain Scale: Adult br2 ED Course: 15:09 Patient arrived in ED. mg5 15:14 Chanda Martinez, DOMENICA is Primary Nurse. ap3 15:16 Venancio Carrera MD is Attending Physician. rn 15:25 Triage completed. cm10 15:25 Arm band placed on right wrist. Patient placed in an exam room, on a stretcher. cm10 15:31 Patient has correct armband on for positive identification. Placed in gown. Bed in low ap3 position. Call light in reach. Side rails up X2. laboratory monitor on. Pulse ox on. NIBP on. 15:46 Initial lab(s) drawn, by me, sent to lab. First set of blood cultures drawn by me. ap3 15:56 Inserted saline lock: 22 gauge in right antecubital area, using aseptic technique. ap3 Blood collected. Flushed with 10 mL NS. 15:57 Second set of blood cultures drawn. ap3 15:57 Urine collected: clean catch specimen, clear. ap3 16:06 Test, Urine Sent. ap3 17:03 CT Abd/Pelvis - IV Contrast Only In Process Unspecified. EDMS 17:57 Angela Patel MD is Hospitalizing Provider. rn 18:48 Provided Education on: medications prior to administration . ap3 18:48 No provider procedures requiring assistance completed. ap3 21:18 Patient admitted, IV remains in place. br2 Administered Medications: 15:57 Drug: Acetaminophen PO 1000 mg PO once Route: PO; ap3 17:45 Follow up: Response: No adverse reaction ap3 15:57 Drug: NS 0.9% IV (30 ml/kg) 30 ml/kg IV at bolus once; Sepsis Protocol; to be given as ap3 a bolus over 90 minutes Route: IV; Rate: bolus; Site: right antecubital; 18:10 Follow up: IV Status: Completed infusion; IV Intake: 2100ml ap3 18:29 Drug: Cefepime IVPB 1 grams IVPB at 200 ml/hr once over 30 mins; (mix in NS 100 mL) ap3 Route: IVPB; Rate: 200 ml/hr; Infused Over: 30 mins; Site: right antecubital; 19:30 Follow up: Response: No adverse reaction; IV Status: Completed infusion; IV Intake: br2 200ml Medication: 16:05 VIS not applicable for this client. ap3 Intake: 18:10 IV: 2100ml; Total: 2100ml. ap3 19:30 IV: 200ml; Total: 2300ml. br2 Outcome: 17:57 Decision to Hospitalize by Provider. rn 21:17 Admitted to Med/surg accompanied by tech, via wheelchair, br2 21:17 Condition: improved 21:17 Instructed on the need for admit, Demonstrated understanding of instructions, 21:19 Patient left the ED. br2 Signatures: Dispatcher [employer] EDMS Venancio Carrera MD MD rn Prokisch, Amanda, RN RN ap3 Giuliana Angeles RN RN 10 Cony Urrutia 5 Apple Del Cid RN RN br2 Corrections: (The following items were deleted from the chart) 20:18 15:25 Allergies: No Known Allergies; cm10 br2
--- NOTE | 2024-08-27 17:59 | EDPHYS ---
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 15:29 The patient presents with pain that is acute, with no known mechanism of injury. The rn symptoms are located in the low back, left mid back and right mid back. The pain does not radiate. Onset: The symptoms/episode began/occurred 5 day(s) ago. Modifying factors: The patient symptoms are alleviated by nothing, the patient symptoms are aggravated by nothing. Onset: The symptoms/episode began/occurred 5 day(s) ago. Patient reports recent diagnosis of UTI, initially prescribed Cipro but culture showed resistance so put on fosfomycin. Patient has a history of sepsis from pyelonephritis and feels similar. Per report had low blood pressure at today's follow-up so sent here for further evaluation. Patient reports lower abdominal pain as well as bilateral mid back pain with nausea and chills. Positive for fever. Historical: - Allergies: 20:16 Hydrocodone-Acetaminophen; br2 - Home Meds: 20:17 Keppra 250 mg Oral tablet 2 times per day for CHRONIC MIGRAINS [Active]; br2 - PMHx: 15:25 None; cm10 - PSHx: 15:25 Appendectomy; back surgery; section; Myringotomy and insertion of tympanic cm10 ventilation tube; Radio frequency ablation to back and neck; Tonsillectomy; - Immunization history:: Adult Immunizations up to date. - Infectious Disease History:: Denies. - Social history:: Smoking status: unknown. - Family history:: not pertinent. - Hospitalizations: : No recent hospitalization is reported. ROS: 15:29 Constitutional: Negative for fever, chills, and weight loss, Cardiovascular: Negative rn for chest pain, palpitations, and edema, Respiratory: Negative for shortness of breath, cough, wheezing, and pleuritic chest pain, Abdomen/GI: Positive for abdominal pain and nausea Back: Positive for back pain : Positive for dysuria MS/Extremity: Negative for injury and deformity, Neuro: Negative for headache, weakness, numbness, tingling, and seizure, Exam: 15:29 Constitutional: This is a well developed, well nourished patient who is awake, alert, rn and in no acute distress. Cardiovascular: Regular rate and rhythm. No pulse deficits. Respiratory: No increased work of breathing, no retractions or nasal flaring. Abdomen/GI: Soft, mild suprapubic tenderness. Back: Bilateral CVA tenderness present MS/ Extremity: Pulses equal, no cyanosis. Neuro: Awake and alert, GCS 15 15:52 ECG was reviewed by the Attending Physician. rn Vital Signs: 15:22 BP 101 / 68; Pulse 75; Resp 16; Temp 99.4(O); Pulse Ox 100% ; Weight 70.31 kg; Height 5 cm10 ft. 3 in. ; Pain 5/10; 16:03 BP 96 / 68; Pulse 67; Resp 17; Pulse Ox 100% on R/A; ap3 16:24 BP 86 / 76 LA Supine (auto/reg); Pulse 69 MON; Resp 17 S; Pulse Ox 100% on R/A; ap3 16:46 BP 94 / 60; Pulse 74; Resp 17; Pulse Ox 97% on R/A; ap3 17:21 BP 93 / 66; Pulse 66; Pulse Ox 100% on R/A; ap3 17:45 BP 89 / 61; Pulse 68; Resp 18; Pulse Ox 100% on R/A; ap3 18:12 BP 90 / 61; Pulse 65; Resp 18; Pulse Ox 100% on R/A; ap3 18:29 BP 99 / 74; Pulse 68; Resp 17; Pulse Ox 100% ; ap3 18:46 BP 101 / 71; Pulse 63; Resp 18; Temp 98.9; Pulse Ox 100% ; ap3 20:18 BP 101 / 64; Pulse 83; Resp 18 S; Pulse Ox 100% on R/A; Pain 5/10; br2 15:22 Body Mass Index 27.46 (70.31 kg, 160.02 cm) cm10 16:24 Sinus Rhythm ap3 15:22 Pain Scale: Adult cm10 20:18 Pain Scale: Adult br2 MDM: 15:16 Medical Screening Exam initiated rn 16:28 ED course: 30 mL/kg bolus ordered given hypertension. Sepsis reevaluation complete. rn 17:46 Differential diagnosis: UTI, Pyelonephritis. Data reviewed: vital signs, nurses notes, recording studio internship test result(s), radiologic studies, CT scan, and as a result, I will admit patient. Consideration of Admission/Observation Patient was admitted/placed on observation. Escalation of care including admission/observation considered. Counseling: I had a detailed discussion with the patient and/or guardian regarding the historical points, exam findings, and any diagnostic results supporting the discharge/admit diagnosis, lab results, radiology results, the need for further work-up and treatment in the hospital. ED course: Patient with several hypotensive episodes under 90, but all MAP above 65. Still getting 30/kg bolus. Patient feels better. Sepsis reevaluation complete. No indication for pressors at this time. Will admit patient given hypotensive episodes. CT without acute pyelonephritis or obstructing stone.. 08/27 15:28 Order name: Blood Culture Adult (2) 08/27 15:28 Order name: CBC with Diff; Complete Time: 16:05 08/27 15:28 Order name: CMP; Complete Time: 16:27 08/27 15:28 Order name: Lactate w/ 2H reflex if indic.; Complete Time: 16:17 08/27 15:28 Order name: Protime (+inr); Complete Time: 16:17 08/27 15:28 Order name: Ptt, Activated; Complete Time: 16:17 08/27 15:28 Order name: Urinalysis w/ reflexes; Complete Time: 16:28 08/27 15:29 Order name: Test, Urine; Complete Time: 16:27 08/27 20:41 Order name: CBC with Automated Diff [facility] 08/27 20:41 Order name: Comprehensive Metabolic Panel [facility] 08/27 20:41 Order name: Lactate w/ 2H reflex if indic. [facility] 08/27 20:41 Order name: Magnesium [facility] 08/27 20:41 Order name: Phosphorus [facility] 08/27 20:41 Order name: Thyroid Stimulating Hormone [facility] 08/27 20:41 Order name: Urinalysis w/ reflexes [facility] 08/27 16:39 Order name: CT Abd/Pelvis - IV Contrast Only; Complete Time: 17:28 08/27 20:41 Order name: CONS Physician Consult [facility] 08/27 15:28 Order name: Accucheck; Complete Time: 16:08 rn 08/27 15:28 Order name: Cardiac monitoring; Complete Time: 15:55 rn 08/27 15:28 Order name: EKG - Nurse/Tech; Complete Time: 15:55 rn 08/27 15:28 Order name: IV Saline Lock - Large Bore; Complete Time: 15:57 rn 08/27 15:28 Order name: Labs collected and sent; Complete Time: 15:57 rn 08/27 15:28 Order name: O2 Per Protocol; Complete Time: 15:29 rn 08/27 15:28 Order name: O2 Sat Monitoring; Complete Time: 15:29 rn 08/27 15:28 Order name: Vital Signs; Complete Time: 15:32 rn EC:52 Rate is 68 beats/min. Rhythm is regular. QRS [place] is Normal. DC interval is normal. QRS rn interval is normal. QT interval is normal. No Q waves. T waves are Normal. No ST changes noted. Clinical impression: Normal ECG. Interpreted by me. Reviewed by me. Administered Medications: 15:57 Drug: Acetaminophen PO 1000 mg PO once Route: PO; ap3 17:45 Follow up: Response: No adverse reaction ap3 15:57 Drug: NS 0.9% IV (30 ml/kg) 30 ml/kg IV at bolus once; Sepsis Protocol; to be given as ap3 a bolus over 90 minutes Route: IV; Rate: bolus; Site: right antecubital; 18:10 Follow up: IV Status: Completed infusion; IV Intake: 2100ml ap3 18:29 Drug: Cefepime IVPB 1 grams IVPB at 200 ml/hr once over 30 mins; (mix in NS 100 mL) ap3 Route: IVPB; Rate: 200 ml/hr; Infused Over: 30 mins; Site: right antecubital; 19:30 Follow up: Response: No adverse reaction; IV Status: Completed infusion; IV Intake: br2 200ml Disposition Summary: 08/27/24 17:57 Hospitalization Ordered Notes: Hospitalization Status: Inpatient Admission rn Provider: Angela Patel rn [facility] rn Condition: Stable rn Problem: new rn Symptoms: have improved rn Bed/Room Type: Standard rn Room Assignment: 228(08/27/24 20:14) km Diagnosis - UTI/ Urinary tract infection, site not specified rn - Hypotension, unspecified rn - Severe sepsis with septic shock rn Forms: - Medication Reconciliation Form rn - SBAR form rn - Leadership Thank You Letter estate planning attorney time excluding procedures: 17:55 Critical care time: Bedside Care: 35 minutes. Total time: 35 minutes rn Signatures: Dispatcher [employer] EDMS Venancio Carrera MD MD rn Prokisch, Amanda, RN RN [id number] Giuliana Angeles RN RN cm10 Melanie Houser [facility] Apple Del Cid RN RN br2 Corrections: (The following items were deleted from the chart) 15:29 15:29 BLOOD CULTURE*+BA.LAB.BRZ ordered. EDMS EDMS 15:29 15:29 CBC+H.LAB.BRZ ordered. EDMS EDMS 15:29 15:29 COMPREHENSIVE METABOLIC PANEL+C.LAB.BRZ ordered. EDMS EDMS 15:29 15:29 LACTATE+C.LAB.BRZ ordered. EDMS EDMS 15:29 15:29 PROTIME (+INR)+COAG.LAB.BRZ ordered. EDMS EDMS 15:29 15:29 PTT, ACTIVATED+COAG.LAB.BRZ ordered. EDMS EDMS 15:29 15:29 Urinalysis+U.LAB.BRZ ordered. EDMS EDMS 15:29 15:29 Test, Urine+UC.LAB.BRZ ordered. EDMS EDMS 20:14 17:57 rn [facility] 20:18 15:25 Allergies: No Known Allergies; cm10 br2
[2024-08-27] MEDS ORDERED: CEFEPIME 1 GM/VIAL ONE (18:15)
--- NOTE | 2024-08-27 20:46 | P.HP ---
Certification for Inpatient With expected LOS: <2 Midnights Practitioner: I am a practitioner with admitting privileges, knowledge of patient current condition, hospital course, and medical plan of care. Services: Services provided to patient in accordance with Admission requirements found in Title 42 Section 412.3 of the Code of Federal Regulations Patient History Date of Service: 08/27/24 Reason for admission: pyelonephritis, hypotension History of Present Illness: 34-year-old woman with a past medical history significant for UTIs presented to the emergency department today with hypotension and dysuria. Patient states that she was initially started on ciprofloxacin for a UTI sometime last week. On 08/22/2024, the patient reports ciprofloxacin was changed to fosfomycin because her urinary cultures returned that fosfomycin would be better for her UTI. The patient states that she has not missed any doses of this medication. However, she still is having dysuria. Also, the patient complains of bilateral lower quadrant abdominal pain that radiates to her back. The patient states that she has had a subacute fever for the past week. She has not attempted anything to alleviate her subacute fever or abdominal pain, and states nothing worsens. She denies cough, dyspnea, and palpitations. Allergies No Known Allergies Allergy (Unverified 05/27/24 05:14) Home Medications: Levetiracetam [Keppra Xr] 500 mg PO BID 05/27/24 Sertraline [Zoloft*] 100 mg PO DAILY 05/27/24 Trazodone HCl 100 mg PO BEDTIME 05/27/24 Codeine/APAP [Tylenol #3*] 1 tab PO Q8H PRN #5 tab 05/29/24 Ondansetron [Zofran] 4 mg PO Q6H PRN #10 tab 05/29/24 levoFLOXacin [Levaquin*] 750 mg PO DAILY 10 Days #10 tab 05/29/24 - Past Medical/Surgical History Diabetic: No -: depression -: hx of UTI -: appendectomy -: Tonsillectomy -: -: Back surgery - Family History Family History: Reviewed- Non-Contributory - Social History Smoking Status: Former smoker (quit 15 years ago) Alcohol use: No CD- Drugs: No Caffeine use: No Review of Systems General: Fever (subacute) Gastrointestinal: Abdominal Pain (b/l lower abd quadrants), No Distention Genitourinary: Dysuria Physical Examination - Vital Signs Temperature: 99.4 F Blood Pressure: 105/70 Pulse: 79 Respirations: 18 Pulse Ox (%): 100 (room air) - Physical Exam General: Alert, Oriented x3 HEENT: Atraumatic, Normocephalic Neck: JVD not distended Respiratory: Clear to auscultation bilaterally Cardiovascular: No edema, Regular rate/rhythm, No gallops, No rubs, No murmurs Gastrointestinal: Normal bowel sounds, Non-distended, Tenderness (b/l lower abd quadrants) Musculoskeletal: No swelling, No erythema, No tenderness, No warmth Neurological: Normal strength at 5/5 x4 extr, Sensation intact - Studies Laboratory Data (last 24 hrs) 08/27/24 08/27/24 08/27/24 15:41 15:41 15:41 WBC 6.40 Hgb 12.8 Hct 37.8 Plt Count 291 PT 11.5 INR 1.03 APTT 32.9 Sodium 137 Potassium 3.7 BUN 11 Creatinine 0.64 Glucose 91 Total Bilirubin 0.8 AST 20 ALT 37 Alkaline Phosphatase 63 Assessment and Plan - Problems (Diagnosis) (1) Pyelonephritis Current Visit: Yes Status: Acute (2) Hypotension Current Visit: Yes Status: Acute - Plan Pyelonephritis: Admit to floor Continue with IV fluid CT A/P revealed 2 mm nonobstructing right renal calculus, no hydronephrosis, no diverticulitis Given Tylenol in ED for fever, given cefepime in ED Hypotension: Continue with IVF - Advance Directives Does patient have a Living Will: No Does patient have a Durable POA for Healthcare: No
[2024-08-27 23:36] VITALS: BMI 27.1
[2024-08-27] MEDS: TRAZODONE 50 MG TABLET PO SCH (23:55)
[2024-08-27] MEDS: ACETAMINOPHEN 325 MG TABLET PO PRN (23:55)
[2024-08-27] MEDS: NA CHLORIDE 0.9% 1,000 ML IV SCH (23:55)
[2024-08-28 01:16] LABS: Renal Epithelial <5 /HPF (None Seen); Sqamous Epithelial <5 /HPF (None Seen); Urine Bacteria None Seen /HPF (<20); Urine Bilirubin NEGATIVE (Negative); Urine Blood Negative (Negative); Urine Clarity Clear (Clear); Urine Color Colorless (Yellow); Urine Culture Reflex Order NOT NEEDED; Urine Glucose NEGATIVE (Negative); Urine Ketones NEGATIVE (Negative); Urine Microscopic Reflex YN ORDER UMIC; Urine Nitrite NEGATIVE (Negative); Urine Protein NEGATIVE (Negative); Urine RBC None Seen /HPF (None Seen); Urine Urobilinogen Normal (Normal); Urine WBC <5 /HPF (<5)
[2024-08-28 04:32] VITALS: O2SAT 100
[2024-08-28 05:32] LABS: Absolute Eosinophils 0.1 K/uL (0-0.5); Absolute Lymphocytes (CBC) 2.3 K/uL (0.7-4.9); Absolute Monocytes 0.3 K/uL (0.1-1.3); Absolute Neutrophil 3.6 K/uL (1.8-8.0); Basophils % 0.7 % (0-1.3); Eosinophils % 1.3 % (0-4.4); Hemoglobin 11.6 g/dL (12.0-15.0); Lymphocytes % 35.6 % (15.3-44.8); MCH 30.6 pg (27.0-35.0); MCHC 34.2 g/dL (32.0-36.0); MCV 89.6 fL (80-100); MPV 7.7 fL (7.6-11.3); Monocytes % 5.4 % (3.3-12.3); Nucleated Red Blood Cells % 0.2 % (0-0); Platelets 274 thou/uL (152-406)
[2024-08-28 05:53] LABS: Albumin 3.2 g/dL (3.4-5.0); Albumin/Globulin Ratio 1.1 (1.1-1.8); Anion Gap 6.3 mEq/L (5.0-15.0); Bilirubin Total 0.4 mg/dL (0.2-1.0); Phosphorus 3.7 mg/dL (2.5-4.9); Potassium 4.3 mEq/L (3.5-5.1); Protein, Total 6.2 g/dL (6.4-8.2)
[2024-08-28 05:54] LABS: Thyroid Stimulating Hormone 4.69 uIU/mL (0.358-3.740)
[2024-08-28] MEDS: ENOXAPARIN 40 MG/0.4 ML SQ SCH (08:34)
[2024-08-28] MEDS: SERTRALINE HCL 100 MG TAB PO SCH (08:34)
[2024-08-28] MEDS: HOME MED 1 EA UNK (Levetiracetam [Keppra Xr] 500 MG Tab.Er.24h) PO SCH (10:36)
[2024-08-28] MEDS: levETIRAcetam 500 MG TAB PO SCH (10:55)
--- NOTE | 2024-08-28 11:33 | EKG ---
Test Date: 2024-08-27 Test Time: 15:42:34 Banking And Finance Instructor: BRODIE MEASUREMENT RESULTS: Intervals: Rate: 68 DE: 132 QRSD: 78 QT: 386 QTc: 410 Capitan: P: 16 DE: 132 QRS: 89 T: 36 INTERPRETIVE STATEMENTS: Normal sinus rhythm Normal ECG Compared to ECG 05/27/2024 04:17:00 ST (T wave) deviation no longer present Electronically Signed On 08-28-24 11:31:20 ROLLER LEVELER OPERATOR by Desean Simpson
--- NOTE | 2024-08-28 17:47 | P.PN ---
Subjective Date of Service: 08/28/24 Chief Complaint: pyelonephritis, hypotension Patient reports feeling better compared to yesterday. She does report some mild suprapubic pain. She denies any back pain. No fever or chills. Blood pressure has been soft with systolic in the 90s. Physical Examination - Vital Signs Temperature: 97.3 F Blood Pressure: 98/57 Pulse: 76 Respirations: 16 Pulse Ox (%): 100 - Physical Exam General: Alert, In no apparent distress, Oriented x3 HEENT: Mucous membr. moist/pink, Sclerae nonicteric Neck: Supple, JVD not distended Respiratory: Clear to auscultation bilaterally, Normal air movement Cardiovascular: No edema, Regular rate/rhythm, Normal S1 S2 Gastrointestinal: Normal bowel sounds, Soft and benign, Non-distended, No tenderness Musculoskeletal: No swelling Integumentary: No rashes, No cyanosis Neurological: Normal strength at 5/5 x4 extr Assessment And Plan - Current Problems (Diagnosis) (1) Complicated UTI (urinary tract infection) Current Visit: Yes Status: Acute (2) Hypotension Current Visit: Yes Status: Acute (3) Nephrolithiasis Current Visit: Yes Status: Acute - Plan Patient with recent urine culture growing E. coli sensitive to Zosyn, meropenem, nitrofurantoin, and Bactrim, resistant to fluoroquinolones. Complicated UTI given nephrolithiasis. Patient reported she feels much better after a dose of IV cefepime in the ER. Continue IV Cefepime. Follow blood cultures to rule out bacteremia given hypotension. Resume other home medications for migraine, anxiety and depression.
[2024-08-28] MEDS: CEFEPIME 2 GM in NA CHLORIDE 0.9% 100 ML IV SCH (20:37)
[2024-08-29] MEDS ORDERED: HYDROCODONE/APAP 5/325 MG TAB PO PRN (11:42)
[2024-08-29] MEDS: ACETAMIN/CAFFEINE/BUTALB TAB PO PRN (12:34)
--- NOTE | 2024-08-29 15:58 | P.PN ---
Subjective Date of Service: 08/29/24 Chief Complaint: pyelonephritis, hypotension Patient is complaining of migraine headache today otherwise states she feels better. She stated she is eating more. Systolic blood pressures in the 90s. No recorded fever. Physical Examination - Vital Signs Temperature: 97.1 F Blood Pressure: 97/58 Pulse: 85 Respirations: 12 Pulse Ox (%): 98 - Physical Exam General: Alert, In no apparent distress, Oriented x3 HEENT: Mucous membr. moist/pink Neck: JVD not distended Respiratory: Clear to auscultation bilaterally, Normal air movement Cardiovascular: No edema, Regular rate/rhythm, Normal S1 S2 Gastrointestinal: Normal bowel sounds, Soft and benign, Non-distended, No tenderness Musculoskeletal: No swelling, No tenderness Integumentary: No rashes, No erythema Neurological: Normal speech, Normal strength at 5/5 x4 extr Assessment And Plan - Current Problems (Diagnosis) (1) Complicated UTI (urinary tract infection) Current Visit: Yes Status: Acute (2) Hypotension Current Visit: Yes Status: Acute (3) Nephrolithiasis Current Visit: Yes Status: Acute (4) Acute migraine Current Visit: Yes Status: Acute - Plan Patient with recent urine culture growing E. coli sensitive to Zosyn, meropenem, nitrofurantoin, and Bactrim, resistant to fluoroquinolones. Complicated UTI given nephrolithiasis. Continue IV Cefepime. Blood cultures: No growth to date. Trial of Fioricet and oxycodone for migraine. Obtain echocardiogram given persistent hypotension. Check a.m. cortisol. Continue home medications for migraine, anxiety and depression.
[2024-08-29] MEDS: OXYCODONE HCL 5 MG TAB PO PRN (20:02)
[2024-08-30 08:41] LABS: T3 Free 2.29 pg/mL (2.18-3.98)
[2024-08-30] MEDS: NA CHLORIDE 0.9% 1,000 ML IV ONE (08:46)
[2024-08-30] MEDS: ONDANSETRON 4 MG/2 ML VIAL IV PRN (12:42)
[2024-08-30] MEDS ORDERED: METOCLOPRAMIDE 10 MG/2mL INJ IV PRN (13:16)
--- NOTE | 2024-08-30 13:28 | P.PN ---
Subjective Date of Service: 08/30/24 Chief Complaint: pyelonephritis, hypotension Patient reports persistent migraine headache, associated with 1 episode of vomiting today. Systolic blood pressures remain low No recorded fever. Physical Examination - Vital Signs Temperature: 97.2 F Blood Pressure: 83/51 Pulse: 74 Respirations: 14 Pulse Ox (%): 100 - Physical Exam General: Alert, In no apparent distress, Oriented x3 HEENT: Mucous membr. moist/pink, Sclerae nonicteric Neck: JVD not distended Respiratory: Clear to auscultation bilaterally, Normal air movement Cardiovascular: No edema, Regular rate/rhythm, Normal S1 S2 Gastrointestinal: Normal bowel sounds, Soft and benign, Non-distended, No tenderness Musculoskeletal: No swelling, No tenderness Integumentary: No rashes, No cyanosis Neurological: Normal strength at 5/5 x4 extr Assessment And Plan - Current Problems (Diagnosis) (1) Complicated UTI (urinary tract infection) Current Visit: Yes Status: Acute (2) Hypotension Current Visit: Yes Status: Acute (3) Nephrolithiasis Current Visit: Yes Status: Acute (4) Acute migraine Current Visit: Yes Status: Acute - Plan Patient with recent urine culture growing E. coli sensitive to Zosyn, meropenem, nitrofurantoin, and Bactrim, resistant to fluoroquinolones. Complicated UTI given nephrolithiasis. Continue IV Cefepime. Antibiotics day 4. Blood cultures: No growth to date. Trial of Fioricet and oxycodone for migraine. Obtain echocardiogram given persistent hypotension. A.m. cortisol within normal range, Free T4 and T3 are normal. Obtain CTA thorax to evaluate for PE. Continue home medications for anxiety and depression. Fioricet, oxycodone, Reglan as needed for migraine.
--- NOTE | 2024-08-30 14:42 | RAD REPORT ---
EXAMINATION: CTA CHEST PE CLINICAL INDICATION: Female, 34 years old. Hypotension TECHNIQUE: This examination was performed according to an angiographic protocol with 3D post-processi ng. This involves 3D reconstructions, MIPs, volume rendered images and/or shaded surface rendering. One or more of the following dose reduction techniques were used: Automated exposure control, adjustm ent of the mA and/or kV according to patient size, and/or iterative reconstruction. Unless otherwise specified, incidental findings do not require dedicated imaging follow-up. [id number]. COMPARISON: No prior exam. FINDINGS: LOWER NECK: Visualized thyroid gland and soft tissues are normal. LUNGS AND AIRWAYS: Airways are clear. No evidence of airspace or interstitial process. No nodules. PLEURA: No pleural effusion. No pneumothorax. Hemidiaphragms are normally positioned. MEDIASTINUM AND LYMPH NODES: No mediastinal mass or fluid collection. Normal size mediastinal, hilar, and axillary lymph nodes. THORACIC AORTA: Normal caliber and configuration. PULMONARY ARTERIES: No evidence of pulmonary embolism. HEART: Normal heart size. No pericardial effusion. No coronary calcifications. OSSEOUS STRUCTURES AND CHEST WALL: Intact. UPPER ABDOMEN: No significant abnormalities. IMPRESSION: No evidence of pulmonary emboli to the subsegmental level. Lungs are clear.
--- NOTE | 2024-08-30 17:01 | RAD REPORT ---
EXAM: Brain W/Wo Cont CLINICAL INDICATION: Headache, hypotension. TECHNIQUE: Pre-contrast sagittal and axial T1-w, and axial T2-FLAIR, GRE, and diffusion-w sequences o f the brain with ADC maps. Post-contrast axial fat-saturated T2-w and T1-w, and sagittal volumetric T1-w images of the brain with axial and coronal reformations. Intravenous contrast material was admin istered for the examination.[id number] COMPARISON: None. FINDINGS: Parenchyma: No infarction on DWI. No hemorrhage. No mass or mass effect. T2 hyperintense right basal ganglia cystic structure measuring 9 mm without enhancement or significant adjacent gliosis. This is likely a dilated perivascular space and not sequela of a remote lacunar infarct.. Single focus of T2/FLAIR hyperintensity within the subcortical white matter at the left posterior frontal lobe which is nonspecific but can be a normal finding of the patient's age. Abnormal Enhancement: None Extra-axial Collection: None Ventricular System: Normal Major Intracranial Flow Voids: Normal Osseous Structures: Expected marrow signal. Included Orbits: Normal Paranasal Sinuses: Predominantly clear Tympanomastoid Cavities: Normal IMPRESSION: No acute intracranial abnormality. No evidence of acute infarct or abnormal enhancement. Cystic struc ture in the right ganglia is most consistent with a dilated perivascular space and of doubtful clinical significance.
[2024-08-30] MEDS ORDERED: SUMATRIPTAN SUCC 6MG/0.5ML VIAL SQ ONE (18:30)
--- NOTE | 2024-08-30 18:59 | P.DS ---
Admission Date: 08/27/24 Discharge Date: 08/30/24 Disposition: ROUTINE DISCHARGE Discharge Condition: FAIR Reason for Admission: pyelonephritis, hypotension - Problems (1) Complicated UTI (urinary tract infection) Status: Acute (2) Hypotension Status: Acute (3) Nephrolithiasis Status: Acute (4) Acute migraine Status: Acute Brief History of Present Illness: 34-year-old woman with a past medical history significant for UTIs presented to the emergency department with hypotension and dysuria. Patient stated that she was initially started on ciprofloxacin for a UTI sometime last week. On 08/22/2024, the patient reports ciprofloxacin was changed to fosfomycin because her urinary cultures. Patient reported persistent dysuria despite antibiotics.she also, complained of bilateral lower quadrant abdominal pain that radiates to her back. The patient states that she has had a subacute fever for the past week. CT abdomen and pelvis done in the emergency department showed small right renal nonobstructive calculus. Patient blood pressure was noted to be low in the ED. She was hospitalized for further management. Hospital Course: Patient with recent urine culture growing E. coli sensitive to Zosyn, meropenem, nitrofurantoin, and Bactrim, resistant to fluoroquinolones. Patient diagnosed with complicated UTI given nephrolithiasis and treated with IV cefepime based on outpatient culture sensitivity Blood cultures yielded no growth. Patient also has a history of migraine which was managed with Fioricet and oxycodone. She takes low-dose Keppra for the migraine MRI of the brain was done due to persistent headache with hypertension and was unremarkable except a cystic structure in the right ganglia is most consistent with a dilated perivascular space and of doubtful clinical significance. Given her low blood pressure with a.m. cortisol was done which was within normal range, Free T4 and T3 were also normal. CTA thorax was negative for PE Continued home medications for anxiety and depression. Patient's symptoms have improved. She is discharged with nitrofurantoin to continue treatment for the UTI and informed to follow-up with neurology Dr. Wilhelm regarding her migraine. Vital Signs/Physical Exam: Temp Pulse Resp BP Pulse Ox 98.1 F 72 14 100/57 L 100 08/30/24 16:00 08/30/24 16:00 08/30/24 16:00 08/30/24 16:00 08/30/24 16:00 General: Alert, In no apparent distress, Oriented x3 HEENT: Mucous membr. moist/pink Neck: Supple, JVD not distended Respiratory: Clear to auscultation bilaterally, Normal air movement Cardiovascular: No edema, Regular rate/rhythm, Normal S1 S2, No murmurs Gastrointestinal: Normal bowel sounds, Soft and benign, Non-distended, No tenderness Musculoskeletal: No swelling Integumentary: No rashes, No cyanosis Neurological: Normal speech, Normal strength at 5/5 x4 extr, Cranial nerves 3-12 intact Laboratory Data at Discharge: WBC 6.30 thou/uL (4.3-10.9) 08/28/24 05:13 Hgb 11.6 g/dL (12.0-15.0) L D 08/28/24 05:13 Hct 34.0 % (36.0-45.0) L 08/28/24 05:13 Plt Count 274 thou/uL (152-406) 08/28/24 05:13 PT 11.5 SECONDS (9.4-12.5) 08/27/24 15:41 INR 1.03 08/27/24 15:41 APTT 32.9 SECONDS (24.3-36.9) 08/27/24 15:41 Sodium 141 mEq/L (136-145) 08/28/24 05:13 Potassium 4.3 mEq/L (3.5-5.1) D 08/28/24 05:13 BUN 8 mg/dL (7-18) 08/28/24 05:13 Creatinine 0.62 mg/dL (0.55-1.02) 08/28/24 05:13 Glucose 98 mg/dL (74-106) 08/28/24 05:13 Phosphorus 3.7 mg/dL (2.5-4.9) 08/28/24 05:13 Magnesium 2.0 mg/dL (1.6-2.4) 08/28/24 05:13 Total Bilirubin 0.4 mg/dL (0.2-1.0) 08/28/24 05:13 AST 17 U/L (15-37) 08/28/24 05:13 ALT 30 U/L (13-56) 08/28/24 05:13 Alkaline Phosphatase 51 U/L (45-117) 08/28/24 05:13 Home Medications: Levetiracetam [Keppra Xr] 250 mg PO BID 05/27/24 Sertraline [Zoloft*] 100 mg PO DAILY 05/27/24 Trazodone HCl 100 mg PO BEDTIME 05/27/24 Ondansetron [Zofran (Odt)*] 4 mg PO Q6H PRN #10 tab 05/29/24 Midodrine HCl [Proamatine*] 5 mg PO TID PRN #30 tab 08/30/24 Nitrofuran Macro [Macrobid] 100 mg PO BID #20 cap 08/30/24 Oxycodone HCl [Oxyir (Oxycodone HCl Imr)*] 5 mg PO Q6H PRN #12 tab 08/30/24 Rizatriptan Benzoate [Rizatriptan] 10 mg PO SEECOM #10 tab 08/30/24 New Medications: Nitrofuran Macro [Macrobid] 100 mg PO BID #20 cap Oxycodone HCl [Oxyir (Oxycodone HCl Imr)*] 5 mg PO Q6H PRN #12 tab PRN Reason: Pain Scale 5-7 (Moderate) Midodrine HCl [Proamatine*] 5 mg PO TID PRN #30 tab PRN Reason: Systolic BP < 90 Rizatriptan Benzoate [Rizatriptan] 10 mg PO SEECOM #10 tab Physician Discharge Instructions: PROBLEM: kidney infection, low blood pressure GOAL: Clear understanding of disease process INSTRUCTIONS: Diet: Regular Activity: Ad juliette return to ER for any emergencies call second floor for any questions [phone] call for appointment with PCP and Dr. Wilhelm Orthostatic precaution. Please Midodrine as needed for systolic BP less than 90. Compression stocking up to thigh level can also help with blood pressure. Please use 2-4 minutes to change from lying to standing to allow time for your BP to adjust to your change in posture. Diet: Regular Activity: Ad juliette Followup: Steph Schaffer [Primary Care Provider] - 1 Week Christian Wilhelm MD [ASSOCIATE-ACTIVE - CAN ADMIT] - 2-3 Days (Migraine Please walk in to pick samples of Quilipta/Ubrelvy from the Office-Monday09/02/2024 morning. Book an appointment for follow up with Dr. Wilhelm. ) Time spent managing pt's care (in minutes): 36
[2024-08-30 20:09] VITALS: BP 102/55; TEMP 98.4
[2024-08-30] MEDS ORDERED: TOPIRAMATE 25 MG TAB PO SCH (21:00)
[2024-08-31] MEDS ORDERED: FOLIC ACID 1 MG TABLET PO SCH (09:00)
== END 2024-08-30 21:30 | disposition home or self-care (01) | DRG 690 ==
LOC: ER 15:05 → ERHOLD 20:36 → 2ND 21:06
PROVIDERS: ADMIT Internal Medicine; ATTEND Internal Medicine
DX: N10 Acute pyelonephritis (principal); Z16.23 Resistance to quinolones and fluoroquinolones; I10 Essential (primary) hypertension; N20.0 Calculus of kidney; F41.9 Anxiety disorder, unspecified; F32.A Depression, unspecified; G43.909 Migraine, unspecified, not intractable, without status migrainosus; B96.20 Unspecified Escherichia coli [E. coli] as the cause of diseases classified elsewhere; Z88.5 Allergy status to narcotic agent; Z90.49 Acquired absence of other specified parts of digestive tract; Z79.899 Other long term (current) drug therapy; Z87.891 Personal history of nicotine dependence
CPT/HCPCS: 36415; 70553; 71275; 74177; 80053; 81001; 81025; 82533; 83605; 83735; 84100; 84439; 84443; 84481; 85025; 85610; 85730; 87040; 93005; 96365; 96366; 96367; 99285; A9577; J0692; J1650; J2405; J7030; Q9967